=== PATIENT | female | born 1965 | race African-American/Black ===

== ENCOUNTER 2018-01-23 12:28 | Inpatient (IN) | payer OTHER ==
[~2018-01-23] VITALS: Ht 160 cm; Wt 98.0 kg
[~2018-01-23 12:28] MED LIST: ALBU2.5V14 NEB; CETI10TA22 PO; LEVO25TA55 PO; LISI-338 PO; MEDR2.5T PO; METF500T5 PO; MONT10TA9 PO; OMEP40CA5 PO; SIMV10TA PO
[2018-01-23] MEDS ORDERED: IPRATRPIUM/ALBUTEROL 0.5/2.5MG 3 ML NEBU. NEB ONE (14:00)
[2018-01-23] MEDS ORDERED: IV NORMAL SALINE 1,000ML 1,000 ML IV ONE ×2 (14:00→15:00)
--- NOTE | 2018-01-23 14:11 | RAD ---
Chest, 2 views, 01/23/2018: HISTORY: Shortness of breath, cough Comparison is made to a study from 03/07/2017. The heart size is normal. There are prominent pulmonary markings in a faintly reticulonodular pattern, similar to those seen on the previous study. No dense consolidation is seen. There is no evidence of pleural fluid. IMPRESSION: Prominent pulmonary markings are again noted suggesting chronic interstitial lung disease/fibrosis versus atypical pneumonia. Electronically signed by: Bala Haile MD (01/23/2018 2:08 PM) [facility]
--- NOTE | 2018-01-23 14:23 | PHYS DOC ---
Past History Past Medical History: Angina, Diabetes, Hypertension Past Surgical History: Cancer Surgery, Hysterectomy Alcohol Use: None Drug Use: None Adult General Chief Complaint Chief Complaint: FEVER HPI HPI Patient is a 52 YO Female with multiple medical problems to include hypertension as well as bladder cancer status post chemotherapy approximately last dose was she says 2 weeks ago. She did recently have a cystoscopy as well as January 15. She also has history of diabetes and hypertension she is coming in complaining of body aches feeling feverish she has a dry cough as well as some shortness of breath feels like wheezing in addition she's had a sore throat and some sinus congestion. Her sister has also checked into the emergency room with similar symptoms . Review of Systems Review of Systems Constitutional: FEVERISH Eyes: Denies change in visual acuity, redness, or eye pain [] HENT: HPI Respiratory: HPI Cardiovascular: No additional information not addressed in HPI [] GI: Denies abdominal pain, POS NAUSEA Musculoskeletal: Denies back pain or joint pain [] Integument: Denies rash or skin lesions [] Neurologic: Denies headache, focal weakness or sensory changes [] Endocrine: Denies polyuria or polydipsia [] All other systems were reviewed and found to be within normal limits, except as documented in this note. Current Medications Current Medications Current Medications Medications (Trade) Dose Ordered Sig/Cora Start Time Stop Time Status Last Admin Dose Admin Albuterol/ Ipratropium (Duoneb) 3 ml 1X ONCE 01/23/18 14:00 01/23/18 14:01 DC 01/23/18 14:00 3 ML Sodium Chloride 1,000 ml @ 1,000 mls/hr 1X ONCE 01/23/18 14:00 01/23/18 14:59 01/23/18 14:12 1,000 MLS/HR Allergies Allergies Allergies Coded Allergies Type Severity Reaction Last Updated Verified No Known Drug Allergies 04/30/15 No Physical Exam Physical Exam Constitutional: Well developed, well nourished, MILD DISTRESS HENT: Normocephalic, atraumatic, bilateral external ears normal, oropharynx DRY , no oral exudates, nose normal. [] Eyes: PERRLA, EOMI, conjunctiva normal, no discharge. [] Neck: Normal range of motion, no tenderness, supple, no stridor. [] Cardiovascular:TACHY NO DEFINITE MURMUR Lungs & Thorax: WHEEZING B/L WITH RHONCHI MID LEFT LUNG Abdomen: Bowel sounds normal, soft, no tenderness, no masses, no pulsatile masses. [] Skin: Warm, dry, no erythema, no rash. [] Extremities: No tenderness, no cyanosis, no clubbing, ROM intact, no edema. [] Neurologic: Alert and oriented X 3, normal motor function, normal sensory function, no focal deficits noted. [] Psychologic: Affect normal, judgement normal, mood normal. [] Current Patient Data Vital Signs Vital Signs Date Time Temp Pulse Resp B/P (MAP) Pulse Ox O2 Delivery O2 Flow Rate FiO2 01/23/18 14:00 98 Nasal Cannula 2.0 BP WAS IN 170S IN TRIAGE, TEMP 100.1 HR 118. SAT 93-95 RA RANGE PER RN EKG EKG [] Radiology/Procedures Radiology/Procedures [] Impressions: Comparison is made to a study from 03/07/2017. The heart size is normal. There are prominent pulmonary markings in a faintly reticulonodular pattern, similar to those seen on the previous study. No dense consolidation is seen. There is no evidence of pleural fluid. IMPRESSION: Prominent pulmonary markings are again noted suggesting chronic interstitial lung disease/fibrosis versus atypical pneumonia. Electronically signed by: Bala Haile MD (01/23/2018 2:08 PM) [facility] DICTATED AND SIGNED BY: BALA HAILE MD DATE: 01/23/18 1402 CC: KATELYNN ADAIR; TAWNYA ALDRIDGE MD ~ Course & Med Decision Making Course & Med Decision Making Pertinent Labs and Imaging studies reviewed. (See chart for details) This is a 52-year-old female with a history of bladder cancer status post chemotherapy last dose was she thinks January 07 recent cystoscopy on January 15 history of hypertension as well as diabetes who is presenting with symptoms of fever body aches cough and some sore throat and sinus congestion with a sick contact with similar symptoms. ER workup does reveal urinary tract infection possible atypical pneumonia on chest x-ray lactic acid was within normal limits Vitals were significant for tachycardia with a good blood pressure. Patient was given albuterol IV fluids as well as antibiotics in the emergency room to cover for atypical pneumonia and UTI. Due to her history risk factors have consulted with Dr. COLMENARES FOR INPATIENT ADMISSION. PT AGREABLE Tricia Disclaimer Tricia Disclaimer This electronic medical record was generated, in whole or in part, using a voice recognition dictation system. Departure Departure: Impression: Primary Impression: UTI (urinary tract infection) Additional Impression: Pneumonia Disposition: ADMITTED INPATIENT Condition: STABLE Referrals: KATELYNN ADAIR (PCP) Problem Qualifiers TAWNYA ALDRIDGE MD Jan 23, 2018 14:23
[2018-01-23] MEDS ORDERED: ACETAMINOPHEN 500 MG TABLET PO ONE (14:30)
[2018-01-23] MEDS ORDERED: DOXYCYCLINE HYCLATE 100 MG in IV DEXTROSE 5% 100 ML IV ONE (14:30)
[2018-01-23 14:31] LABS: BASO % 0 % (0-3); EOS # 0.1 x10^3/uL (0.0-0.7); EOS % 2 % (0-3); HEMATOCRIT 42.6 % (36.0-47.0); HEMOGLOBIN 14.4 g/dL (12.0-15.5); LYMPH # 0.7 x10^3/uL (1.0-4.8); LYMPH % 8 % (24-48); MEAN CORPUSCULAR HEMOGLOBIN 28 pg (25-35); MEAN CORPUSCULAR HGB CONC 34 g/dL (31-37); MEAN CORPUSCULAR VOLUME 84 fL (79-100); MONO # 0.7 x10^3/uL (0.0-1.1); MONO % 8 % (0-9); NEUT # 7.2 x10^3uL (1.8-7.7); NEUT % 82 % (31-73); PLATELET COUNT 374 x10^3/uL (140-400); RED BLOOD COUNT 5.06 x10^6/uL (3.50-5.40); WHITE BLOOD COUNT 8.7 x10^3/uL (4.0-11.0)
[2018-01-23 14:44] LABS: CLARITY,URINE TURBID; COLOR,URINE YELLOW
[2018-01-23 14:45] LABS: BACTERIA,URINE MANY /HPF (0-FEW); BILIRUBIN,URINE NEG (NEG); GLUCOSE,URINE NEG (NEG); NITRITE,URINE POS (NEG); SQUAMOUS EPITHELIAL CELL,UR OCC /LPF; UROBILINOGEN,URINE 1 mg/dL (0.2 mg/dL); WBC,URINE 20-40 /HPF (0-4)
[2018-01-23] MEDS ORDERED: IV DEXTROSE 5% 100 ML IV ONE (14:53)
[2018-01-23] MEDS ORDERED: IV NORMAL SALINE 50ML 50 ML ONE (14:53)
[2018-01-23] MEDS ORDERED: DOXYCYCLINE HYCLATE 100 MG VIAL IV ONE (14:53)
[2018-01-23] MEDS ORDERED: cefTRIAXone SODIUM 1 GM VIAL IV ONE (14:53)
[2018-01-23 15:19] LABS: ALBUMIN 3.3 g/dL (3.4-5.0); ALBUMIN/GLOBULIN RATIO 0.8 (1.0-1.7); CALCIUM 8.3 mg/dL (8.5-10.1); CREATININE 0.8 mg/dL (0.6-1.0); GFR 90.8; TOTAL BILIRUBIN 0.1 mg/dL (0.2-1.0); TOTAL PROTEIN 7.3 g/dL (6.4-8.2)
[2018-01-23] MEDS: IPRATRPIUM/ALBUTEROL 0.5/2.5MG 3 ML NEBU. NEB SCH ×2 (15:39→21:37)
[2018-01-23] MEDS ORDERED: NICOTINE 21MG PATCH. TD ONE (16:00)
[2018-01-23 16:30] VITALS: BP 138/90
[2018-01-23] MEDS ORDERED: CLON0.5T PO (17:28)
[2018-01-23] MEDS ORDERED: TRAZ50TA15 PO (17:28)
[2018-01-23] MEDS ORDERED: TRAM50TA PO (17:28)
[2018-01-23] MEDS ORDERED: BUPR150T9 PO (17:28)
[2018-01-23] MEDS ORDERED: FLUT9.9S NS (17:28)
[2018-01-23] MEDS: IV NORMAL SALINE 1,000ML 1,000 ML IV SCH ×2 (18:31→23:20)
[2018-01-23] MEDS: traMADol 50 MG TABLET PO PRN (18:45)
[2018-01-23] MEDS: metFORMIN 500 MG TABLET PO SCH (19:00)
[2018-01-23 19:35] VITALS: BP 139/89
[2018-01-23] MEDS: traZODone 50 MG TABLET. PO SCH (21:00)
[2018-01-23] MEDS ORDERED: clonazePAM 0.5 MG TABLET PO SCH (21:00)
[2018-01-23] MEDS: SIMVASTATIN 10 MG TABLET PO SCH (21:48)
[2018-01-23] MEDS: ACETAMINOPHEN 325 MG TABLET PO PRN (21:49)
[2018-01-23] MEDS: LISINOPRIL 20 MG TABLET PO SCH (21:49)
[2018-01-23] MEDS: ENOXAPARIN 40 MG/0.4 ML SYRINGE. SQ SCH (21:49)
[2018-01-23 23:30] VITALS: BP 137/88
[2018-01-24 05:35] VITALS: BP 105/68
[2018-01-24] MEDS: IV NORMAL SALINE 1,000ML 1,000 ML IV SCH (05:49)
[2018-01-24] MEDS: IPRATRPIUM/ALBUTEROL 0.5/2.5MG 3 ML NEBU. NEB SCH ×4 (06:41→22:09)
[2018-01-24] MEDS: metFORMIN 500 MG TABLET PO SCH ×3 (08:00→17:26)
[2018-01-24] MEDS ORDERED: cefTRIAXone IV Push 1 GM VIAL. IVP SCH (08:00)
[2018-01-24] MEDS ORDERED: clonazePAM 0.5 MG TABLET PO PRN (08:00)
[2018-01-24] MEDS: buPROPion XL 150 MG TAB.ER.24H PO SCH (08:55)
[2018-01-24] MEDS: PANTOPRAZOLE 40 MG TABLET. PO SCH (08:55)
[2018-01-24] MEDS: ACETAMINOPHEN 325 MG TABLET PO PRN (08:56)
[2018-01-24] MEDS: LISINOPRIL 20 MG TABLET PO SCH ×2 (08:56→20:13)
[2018-01-24] MEDS: LACTOBACILLUS RHAMNOSUS GG 1 CAPSULE. PO SCH ×2 (08:57→20:12)
[2018-01-24] MEDS: FLUTICASONE 50MCG/NASAL SPRAY 16GM BOTTLE. NS SCH (08:57)
[2018-01-24] MEDS: CETIRIZINE HCL 10 MG TABLET PO SCH (08:59)
[2018-01-24] MEDS: DOXYCYCLINE HYCLATE 100 MG in IV DEXTROSE 5% 100 ML IV SCH ×2 (10:01→20:12)
[2018-01-24 11:00] VITALS: BP 126/73
[2018-01-24] MEDS: traMADol 50 MG TABLET PO PRN ×3 (11:08→18:23)
[2018-01-24] MEDS: cefTRIAXone IV Push 1 GM VIAL. IVP SCH (15:00)
[2018-01-24 15:29] VITALS: BP 145/93
[2018-01-24] MEDS ORDERED: ACETAMINOPHEN 325 MG TABLET PO PRN (19:00)
[2018-01-24] MEDS: MONTELUKAST 10 MG TABLET. PO SCH (20:12)
[2018-01-24] MEDS: traZODone 50 MG TABLET. PO SCH (20:12)
[2018-01-24] MEDS: SIMVASTATIN 10 MG TABLET PO SCH (20:13)
[2018-01-24] MEDS: ENOXAPARIN 40 MG/0.4 ML SYRINGE. SQ SCH (20:13)
[2018-01-24] MEDS: methylPREDNISolone SOD SUCC PF 40 MG/ML VIAL. IV SCH (22:00)
[2018-01-24] MEDS: NICOTINE 21MG PATCH. TD PRN (22:00)
[2018-01-24 23:53] VITALS: BP 115/68
--- NOTE | 2018-01-25 00:09 | HP ---
ADMIT DATE: 01/23/2018 HISTORY OF PRESENT ILLNESS: The patient is a 52-year-old female patient who came to the Emergency Room with a complaint of cough that started about 4 days ago associated with the fever, aches and pains all over. She has nausea, but no vomiting. Did complain of left-sided chest pain, shortness of breath. Her fever was up to 102 obtained. She was evaluated in the Emergency Room, was found to have pneumonia on her chest x-ray as well as urinary tract infection, was admitted and was started on IV antibiotic in the form of Rocephin and doxycycline. Apparently, the patient was diagnosed with a bladder cancer and received the most recent chemotherapy on 01/08/2018, and she had had a cystoscopy done on 01/15/2018 at [facility]. PAST MEDICAL HISTORY: Significant for type 2 diabetes, diabetes mellitus, hypertension, coronary artery disease, status post myocardial infarction. She has what seems to be right middle cerebral artery territory infarct with left-sided hemiplegia with no residual neurological deficit. She has arthritis and what seems to be either idiopathic pulmonary fibrosis or some form of interstitial lung disease. PAST SURGICAL HISTORY: Significant for transurethral resection of the bladder cancer. She underwent breast biopsies and lung biopsies. She has a total abdominal hysterectomy and unilateral salpingo-oophorectomy. She also underwent esophagogastroduodenoscopy. ALLERGIES: She has no known drug allergies. MEDICATIONS: She is currently on following medications: She is on Zyrtec 10 mg once a day, albuterol sulfate by nebulizer every 6 hours, simvastatin 10 mg at bedtime, lisinopril 20 mg twice a day, tramadol 50 mg every 6 hours, clonazepam 0.5 mg 3 times a day, Zyban 150 mg p.o. daily, trazodone 50 mg at bedtime, Flonase 2 sprays to each nostril once a day, omeprazole 40 mg once a day, metformin 500 mg twice a day. FAMILY HISTORY: She has 3 sisters alive and 1 brother, and 2 sisters are diseased both of them were murdered, one was shot and the other was drugged to according to her. Her father at the age of 67 because of throat cancer. Mother at age of 57 because of myocardial infarction. SOCIAL HISTORY: She is , has 1 son and 2 daughters. She continued to smoke a pack a day, does not drink alcohol or recreational drugs. She used to work in food services industry. She used to smoke up to 3 packs a day, and now, she is cutting down. She attempted, but so far has failed to quit smoking. REVIEW OF SYSTEMS: The patient denied any blurring of vision, cataract, glaucoma or macular degeneration. Denied any earache, tinnitus or sensorineural deafness. Denied any nosebleeds, stuffy nose or postnasal drip. Denied any sore throat, sore tongue, toothache, hoarseness of voice or difficulty swallowing. Did complain of nausea, but no vomiting. Denied any diarrhea, but admitted to constipation. Denied any hematemesis, melena or hematochezia. Denied any dysuria, frequency or hematuria. Did have left-sided chest pain, but denied any orthopnea or paroxysmal nocturnal dyspnea. Denied any dizziness, lightheadedness, or vertigo. PHYSICAL EXAMINATION: GENERAL: On arrival to the Emergency Room, she was slightly pale, but no jaundice, cyanosis, or thyromegaly. No jugular venous distension. No limb edema. VITAL SIGNS: Her heart rate was 119, blood pressure 157/94, temperature was 100.1, respiratory rate was 20, and oxygen saturation was 95% on 2 liters of oxygen. HEAD, EYES, EARS, NOSE, AND THROAT: Shows normocephalic, atraumatic. NECK: Supple. HEART: Showed normal first and second heart sounds with no gallop, rub or murmur. CHEST: Shows central trachea, equal bilateral expansion, air entry, vesicular breath sounds with bilateral scattered rhonchi and crepitation worse posteriorly, left more than right. ABDOMEN: Slightly distended, soft, nontender. No guarding or rigidity. No organomegaly. All hernial orifices intact. Bowel sounds normal. NEUROLOGIC: She was awake, alert, responding appropriately. Cranial nerves are intact. She moves extremities without difficulty. She ambulates without assistance or assistive devices. DIAGNOSTIC STUDIES: Her lab work on admission showed a white cell count of 8700, hemoglobin 14.4, hematocrit 42.6, MCV 84 and platelet count 374,000. Her serum sodium was 139, potassium 4, chloride 105, bicarb 21, anion gap of 13, BUN 14, creatinine 0.8, estimated GFR was 91 mL per minute. Her glucose was 81, calcium was 8.3. Total bilirubin, AST, ALT, alkaline phosphatase were normal. Total protein was 7.3, albumin was 3.3. Urinalysis showed the urine was yellow, turbid with a pH of 7, specific gravity of 1.015. The urine was negative for protein, glucose, ketones, moderate amount of blood, positive for nitrites, small amount of leukocyte esterase. There were 6-10 rbc's, 20-40 wbc's, and too many bacteria. She does have a chest x-ray which showed, comparison was made to study from 2017, the heart size is normal. There are prominent pulmonary markings in a faintly reticular nodular pattern similar to those seen in the previous study. No dense consolidation is seen. There is no evidence of pleural fluid. The patient has prominent pulmonary markings are again noted suggesting chronic interstitial lung disease, fibrosis versus atypical pneumonia. ASSESSMENT AND PLAN: The patient was admitted with diagnosis of pneumonia as well as urinary tract infection. She obviously has bladder cancer that was treated with surgical resection and chemotherapy. The patient was started on ceftriaxone as well as doxycycline and was continued on all her other medications. JAZMIN COLMENARES MD DR: JACK/vitaliy JOB#: [id number] / [id number]
[2018-01-25 06:07] VITALS: BP 145/90
[2018-01-25] MEDS: methylPREDNISolone SOD SUCC PF 40 MG/ML VIAL. IV SCH ×3 (06:18→22:52)
[2018-01-25 06:33] LABS: HEMATOCRIT 38.9 % (36.0-47.0); HEMOGLOBIN 13.1 g/dL (12.0-15.5); RED BLOOD COUNT 4.58 x10^6/uL (3.50-5.40); RED CELL DISTRIBUTION WIDTH 15.4 % (11.5-14.5); WHITE BLOOD COUNT 8.2 x10^3/uL (4.0-11.0)
[2018-01-25 06:51] LABS: ALBUMIN 3.1 g/dL (3.4-5.0); ALBUMIN/GLOBULIN RATIO 0.7 (1.0-1.7); C REACTIVE PROTEIN 35.4 mg/L (0-3.3); CALCIUM 8.7 mg/dL (8.5-10.1); CREATININE 0.9 mg/dL (0.6-1.0); GFR 79.3; POTASSIUM 4.3 mmol/L (3.5-5.1); TOTAL BILIRUBIN 0.1 mg/dL (0.2-1.0); TOTAL PROTEIN 7.8 g/dL (6.4-8.2)
[2018-01-25] MEDS: IPRATRPIUM/ALBUTEROL 0.5/2.5MG 3 ML NEBU. NEB SCH ×4 (06:56→20:59)
[2018-01-25] MEDS: FLUTICASONE 50MCG/NASAL SPRAY 16GM BOTTLE. NS SCH (09:00)
[2018-01-25] MEDS: metFORMIN 500 MG TABLET PO SCH (09:44)
[2018-01-25] MEDS: CETIRIZINE HCL 10 MG TABLET PO SCH (09:44)
[2018-01-25] MEDS: buPROPion XL 150 MG TAB.ER.24H PO SCH (09:44)
[2018-01-25] MEDS: LACTOBACILLUS RHAMNOSUS GG 1 CAPSULE. PO SCH (09:44)
[2018-01-25] MEDS: LISINOPRIL 20 MG TABLET PO SCH ×2 (09:45→22:51)
[2018-01-25] MEDS: PANTOPRAZOLE 40 MG TABLET. PO SCH (09:46)
[2018-01-25 11:00] VITALS: BP 146/79
--- NOTE | 2018-01-25 11:33 | PN ---
DATE: 01/24/2018 SUBJECTIVE: The patient was admitted yesterday with recurrent bouts of cough, fever, generalized aches and pains, was diagnosed with a pneumonia as well as urinary tract infection. She was started on Rocephin and doxycycline. When I saw her today, she continued to complain of cough and left-sided chest pain. OBJECTIVE: GENERAL: On examining her, she looked well and was clearly in no apparent respiratory distress. VITAL SIGNS: Her heart rate was 101, blood pressure was 126/73, temperature was down to 98.1, respiratory rate 20, and oxygen saturation was 93% on 2 liters of oxygen by nasal cannula. HEAD, EYES, EARS, NOSE AND THROAT: Showed normocephalic, atraumatic. NECK: Supple. HEART: Showed normal first and second sounds. No gallop, rub or murmur. CHEST: Shows central trachea, equal bilateral expansion, air entry, vesicular sounds with crepitation in both sides posteriorly. She has diffuse wheezing involving all lung kurtz. ABDOMEN: Distended, soft, nontender. No guarding or rigidity. No organomegaly. Hernial orifice intact. Bowel sounds normal. NEUROLOGIC: She was awake, alert, responding appropriately. All cranial nerves intact. She moves extremities without difficulty. She ambulates without assistance or assistive devices. LABORATORY DATA: No lab work done this morning. ASSESSMENT: 1. Bladder cancer, status post 4 resections and chemotherapy, the last one was on 01/08/2018. She had also cystoscopy done on 01/15/2018. 2. Chronic obstructive pulmonary disease/idiopathic pulmonary fibrosis. 3. She has questionable pulmonary infiltrate. 4. Urinary tract infection. 5. Hypertension. 6. Hyperlipidemia. PLAN: My plan is to add DuoNeb and also Solu-Medrol, add also insulin sliding scale and continue with the IV antibiotic. Apparently, her urine has already grown more than 100,000 colony forming units per mL of gram-negative rods. JAZMIN COLMENARES MD DR: JACK/vitaliy JOB#: [id number] / [id number]
[2018-01-25 15:00] VITALS: BP 153/91
[2018-01-25] MEDS: cefTRIAXone IV Push 1 GM VIAL. IVP SCH (15:00)
[2018-01-25 20:13] VITALS: BP 130/84
[2018-01-25] MEDS: DOXYCYCLINE HYCLATE 100 MG TABLET PO SCH (22:51)
[2018-01-25] MEDS: MONTELUKAST 10 MG TABLET. PO SCH (22:51)
[2018-01-25] MEDS: traZODone 50 MG TABLET. PO SCH (22:51)
[2018-01-25] MEDS: SIMVASTATIN 10 MG TABLET PO SCH (22:51)
[2018-01-25] MEDS: ENOXAPARIN 40 MG/0.4 ML SYRINGE. SQ SCH (22:52)
[2018-01-25 23:51] VITALS: BP 116/74
--- NOTE | 2018-01-26 01:39 | PN ---
DATE: 01/25/2018 SUBJECTIVE: The patient is resting slightly propped up in bed, eating her lunch comfortably in no apparent distress. She continued to have cough and shortness of breath and does not feel that she is ready to go home, although she is generally feeling much better compared to when she came PHYSICAL EXAMINATION: GENERAL: When I examined her, she looked well and was clearly in no apparent respiratory distress. No pallor, jaundice, cyanosis, or thyromegaly. No jugular venous distension. No lower limb edema. VITAL SIGNS: Her heart rate was 83, blood pressure 105/68, temperature was 97.8, respiratory rate 20, and oxygen saturation was 93% on 2 liters of oxygen. HEAD, EYES, EARS, NOSE AND THROAT: Showed normocephalic, atraumatic. NECK: Supple. HEART: Showed normal first and second sounds. No gallop, rub or murmur. CHEST: Clear to auscultation. No crepitation or rhonchi. She has diffuse wheezing. This is much less than yesterday. ABDOMEN: Distended, soft, nontender. No guarding or rigidity. No organomegaly. Hernial orifices intact. Bowel sounds normal. NEUROLOGIC: She is awake, alert, responding appropriately. All cranial nerves intact. She moves extremities without difficulty. She ambulates without assistance or assistive devices. LABORATORY DATA: Her lab work this morning showed a white cell count of 8200, hemoglobin 13, hematocrit 39, MCV 85 and platelet count 275,000. Her sed rate was high at 71. Her serum sodium was 137, potassium 4.3, chloride 104, bicarbonate 24, anion gap of 9, BUN 6, creatinine 0.9, estimated GFR was 79 mL per minute. Her glucose was 82, calcium was 8.7. Total bilirubin, AST, ALT, alkaline phosphatase were normal. Total protein was 7.8, albumin was 3.1. C-reactive protein was 35.4 mg/dL. So far, her blood cultures are still negative; however, her urine culture has grown more than 100,000 colony-forming units per milliliter of Klebsiella pneumoniae, sensitive to all antibiotics including ceftriaxone and tetracycline. My plan is to continue with the current management for today. FINAL IMPRESSION: 1. Bladder cancer status post resection and chemotherapy, the last one was on 01/08/2018. She also had cystoscopy done on 01/15/2018. 2. Urinary tract infection with growth of more than 100,000 colony-forming units per milliliter of Klebsiella pneumoniae, sensitive to all antibiotics. 3. Chronic obstructive pulmonary disease/idiopathic pulmonary fibrosis. 4. Questionable pulmonary infiltrate. 5. Hypertension. 6. Hyperlipidemia. PLAN: Continue with the steroids and bronchodilator as well as IV antibiotics and will evaluate her tomorrow and discharge her if she is feeling any better. JAZMIN COLMENARES MD DR: JACK/vitaliy JOB#: [id number] / [id number]
[2018-01-26] MEDS: IPRATRPIUM/ALBUTEROL 0.5/2.5MG 3 ML NEBU. NEB SCH ×2 (04:32→10:53)
[2018-01-26 05:57] VITALS: BP 115/66
[2018-01-26] MEDS: methylPREDNISolone SOD SUCC PF 40 MG/ML VIAL. IV SCH ×2 (06:00→06:31)
[2018-01-26] MEDS: FLUTICASONE 50MCG/NASAL SPRAY 16GM BOTTLE. NS SCH (10:06)
[2018-01-26] MEDS: PANTOPRAZOLE 40 MG TABLET. PO SCH (10:07)
[2018-01-26] MEDS: buPROPion XL 150 MG TAB.ER.24H PO SCH (10:07)
[2018-01-26] MEDS: NICOTINE 21MG PATCH. TD PRN (10:07)
[2018-01-26] MEDS: CETIRIZINE HCL 10 MG TABLET PO SCH (10:07)
[2018-01-26] MEDS: DOXYCYCLINE HYCLATE 100 MG TABLET PO SCH (10:07)
[2018-01-26] MEDS: LISINOPRIL 20 MG TABLET PO SCH (10:07)
[2018-01-26 10:40] VITALS: BP 143/78
[2018-01-26] MEDS ORDERED: predniSONE 20 MG TABLET PO SCH (11:30)
[2018-01-26] MEDS ORDERED: CEFP200T PO (12:36)
[2018-01-26] MEDS ORDERED: PRED20TA PO (12:36)
[2018-01-26] MEDS ORDERED: DOXY100C2 PO (12:36)
--- NOTE | 2018-01-26 13:13 | DS ---
DATE OF DISCHARGE: 01/26/2018 HOSPITAL COURSE: The patient is a 52-year-old -[place] female patient, who was admitted on 01/23/2018 with cough that started about 4 days prior to arrival to the Emergency Room with fever, aches and pains all over, but no vomiting. Did complain of left-sided chest pain, shortness of breath, fever was up to 102 Fahrenheit. She was evaluated in the Emergency Room, was admitted with community-acquired pneumonia as well as urinary tract infection. She was started on IV antibiotic in the form of Rocephin and doxycycline. She did actually very well. She remained afebrile, hemodynamically stable with normal white cell count throughout her stay. When I saw her this morning, she was sitting at the edge of the bed comfortably, in no apparent distress. On questioning her, denied any further episode of cough, chest tightness or shortness of breath. She had 6-minute walk, which showed that she is maintaining her oxygen saturation at 95% on room air on exertion and a decision was made to discharge her home to continue with oral antibiotic as well as tapering course of steroids. PHYSICAL EXAMINATION: GENERAL: When I saw her this morning, she looked well and was clearly in no apparent respiratory distress. No pallor, jaundice, cyanosis, or thyromegaly. No jugular venous distension. No limb edema. VITAL SIGNS: Her heart rate was 63, blood pressure 143/78, temperature was 97.8, respiratory rate 20, and oxygen saturation was 98% on room air. HEAD, EYES, EARS, NOSE AND THROAT: Showed normocephalic, atraumatic. NECK: Supple. HEART: Showed normal first and second sounds. No gallop, rub or murmur. CHEST: Clear to auscultation. No crepitation or rhonchi. ABDOMEN: Distended, soft, nontender. No guarding or rigidity. No organomegaly. All hernial orifice intact. Bowel sounds normal. NEUROLOGIC: She was awake, alert, responding appropriately. All cranial nerves intact. She moves extremities without difficulty. She ambulates without assistance or assistive devices. LABORATORY DATA: As of yesterday showed a white cell count of 8200, hemoglobin 13, hematocrit 39, MCV 85 and platelet count 275,000. Her chemistry showed a serum sodium 137, potassium 4.3, chloride 104, bicarbonate 24, anion gap of 9, BUN 6, creatinine 0.9, estimated GFR was 79 mL per minute. Her glucose was 182, calcium was 8.7. Total bilirubin, AST, ALT, alkaline phosphatase were normal. C-reactive protein was 35 mg/dL NC and sed rate was 70 mm per hour. Total protein was 7.8, albumin 3.1. DISCHARGE MEDICATIONS: She was discharged on following medications: Albuterol sulfate by nebulizer every 6 hours, Zyban 150 mg once a day, cetirizine for Zyrtec 10 mg once a day, clonazepam 0.5 mg 3 times a day, Flonase 2 sprays to each nostril daily, lisinopril 20 mg twice a day, metformin 500 mg twice a day, omeprazole 40 mg once a day, simvastatin 10 mg at bedtime, tramadol 50 mg every 6 hours, trazodone 50 mg once a day. She was also discharged on doxycycline 100 mg twice a day for 5 days as well as cefpodoxime 200 mg twice a day, prednisone in tapering fashion at 40 mg once a day for 2 days, 30 mg once a day for 3 days, 20 mg once a day for 3 days, and 10 mg once a day for 3 days. She was also discharged, given a prescription for Flonase. FINAL DISCHARGE DIAGNOSES: 1. Community-acquired pneumonia. 2. Chronic obstructive pulmonary disease exacerbation/idiopathic pulmonary fibrosis. 3. Urinary tract infection with growth of more than 100,000 colony-forming units per mL of Klebsiella pneumoniae, sensitive to all antibiotics. She is known to have hypertension, hyperlipidemia, bladder cancer, status post for resection and chemotherapy. JAZMIN COLMENARES MD DR: JACK/vitaliy JOB#: [id number] / [id number]
[2018-01-27] MEDS ORDERED: predniSONE 20 MG TABLET PO SCH (09:00)
== END 2018-01-26 13:29 | disposition home or self-care (01) | DRG 871 ==
LOC: ER 12:28 → 1 SOUTH 16:16
PROVIDERS: ADMIT Internal Medicine; ATTEND Internal Medicine
DX: A41.9 Sepsis, unspecified organism (principal); J18.9 Pneumonia, unspecified organism; J44.1 Chronic obstructive pulmonary disease with (acute) exacerbation; N39.0 Urinary tract infection, site not specified; G81.94 Hemiplegia, unspecified affecting left nondominant side; J44.0 Chronic obstructive pulmonary disease with (acute) lower respiratory infection; J84.112 Idiopathic pulmonary fibrosis; C67.9 Malignant neoplasm of bladder, unspecified; E11.9 Type 2 diabetes mellitus without complications; E78.5 Hyperlipidemia, unspecified; F17.210 Nicotine dependence, cigarettes, uncomplicated; I10 Essential (primary) hypertension; M19.90 Unspecified osteoarthritis, unspecified site; I25.10 Atherosclerotic heart disease of native coronary artery without angina pectoris; B96.1 Klebsiella pneumoniae [K. pneumoniae] as the cause of diseases classified elsewhere; I25.2 Old myocardial infarction; Z80.8 Family history of malignant neoplasm of other organs or systems; Z82.49 Family history of ischemic heart disease and other diseases of the circulatory system; Z85.51 Personal history of malignant neoplasm of bladder; Z86.73 Personal history of transient ischemic attack (TIA), and cerebral infarction without residual deficits; Z92.21 Personal history of antineoplastic chemotherapy; Z90.710 Acquired absence of both cervix and uterus
CPT/HCPCS: 36415; 71046; 80053; 81001; 82947; 83605; 85025; 85027; 85651; 86140; 87040; 87086; 87186; 94640; 96361; 96365; 96368; J0696; J1650; J2920; J3490; J7512; J7620; 99285-25; J7030

== ENCOUNTER 2018-05-23 01:02 | Emergency (ER) | payer OTHER ==
[~2018-05-23] VITALS: Ht 160 cm; Wt 95.3 kg
[~2018-05-23 01:02] MED LIST changes: +BUPR150T9 PO; +CEFP200T PO; +CLON0.5T PO; +DOXY100C2 PO; +FLUT9.9S NS; +METF500T16 PO; -METF500T5 PO; +PRED20TA PO; +TRAM50TA PO; +TRAZ-85 PO
[2018-05-23] MEDS ORDERED: ONDANSETRON PF 4 MG/2 ML VIAL. IV ONE (01:30)
[2018-05-23] MEDS ORDERED: MORPHINE SULFATE 4 MG/ML DISP.SYRIN. IV ONE (01:30)
--- NOTE | 2018-05-23 01:31 | PHYS DOC ---
Past History Past Medical History: Angina, Cancer, Diabetes, Hypertension, ME Past Surgical History: Cancer Surgery, Hysterectomy Alcohol Use: None Drug Use: None Adult General Chief Complaint Chief Complaint: LOWER EXT PAIN HPI HPI 52-year-old female presents via EMS with bilateral lower extremity pain. Patient states that she had surgery 2 days ago on her bladder. She was doing fine until about 4 hours ago when she began to feel pain in her right knee and her entire left leg up to the hip. The patient became concerned when this pain did not quickly resolved. It is now painful to walk. She has a history of DVT, but no PE. She had this DVT after previous surgery. Her surgery 2 days ago was for bladder cancer. She denies fever or chills. She denies trauma or falls. Review of Systems Review of Systems Constitutional: Denies fever or chills [] Eyes: Denies change in visual acuity, redness, or eye pain [] HENT: Denies nasal congestion or sore throat [] Respiratory: Denies cough or shortness of breath [] Cardiovascular: No additional information not addressed in HPI [] GI: Denies abdominal pain, nausea, vomiting, bloody stools or diarrhea [] : Denies dysuria or hematuria [] Musculoskeletal: Bilateral lower extremity pain[] Integument: Denies rash or skin lesions [] Neurologic: Denies headache, focal weakness or sensory changes [] Endocrine: Denies polyuria or polydipsia [] All other systems were reviewed and found to be within normal limits, except as documented in this note. Current Medications Current Medications Current Medications Medications (Trade) Dose Ordered Sig/Coar Start Time Stop Time Status Last Admin Dose Admin Morphine Sulfate (Morphine 4mg Syringe) 4 mg 1X ONCE 05/23/18 01:30 05/23/18 01:31 UNV Ondansetron HCl (Zofran) 4 mg 1X ONCE 05/23/18 01:30 05/23/18 01:31 UNV Allergies Allergies Allergies Coded Allergies Type Severity Reaction Last Updated Verified No Known Drug Allergies 04/30/15 No Physical Exam Physical Exam Constitutional: Well developed, well nourished, no acute distress, non-toxic appearance. [] HENT: Normocephalic, atraumatic, bilateral external ears normal, oropharynx moist, no oral exudates, nose normal. [] Eyes: PERRLA, EOMI, conjunctiva normal, no discharge. [] Neck: Normal range of motion, no tenderness, supple, no stridor. [] Cardiovascular:Heart rate regular rhythm, no murmur [] Lungs & Thorax: Bilateral breath sounds clear to auscultation [] Abdomen: Bowel sounds normal, soft, no tenderness, no masses, no pulsatile masses. [] Skin: Warm, dry, no erythema, no rash. [] Back: No tenderness, no CVA tenderness. [] Extremities: Mild tenderness with calf compression bilaterally. No cyanosis, no clubbing, ROM intact, no edema. [] Neurologic: Alert and oriented X 3, normal motor function, normal sensory function, no focal deficits noted. [] Psychologic: Affect normal, judgement normal, mood normal. [] EKG EKG [] Radiology/Procedures Radiology/Procedures [] Impressions: Bilateral lower extremity venous Doppler: Reason for examination: Bilateral leg pain. History of cancer. Evaluate for deep venous thrombosis. The right and left lower extremity venous systems were evaluated from the common femoral and greater saphenous veins distally to the calf veins with grayscale imaging, color-flow imaging and spectral analysis. There is normal blood flow present in the venous systems bilaterally. There is normal response of the venous systems to compression and augmentation. No deep venous thrombosis is identified. IMPRESSION: No deep venous thrombosis in the right or left lower extremity venous systems. Electronically signed by: Merari Duran MD (05/23/2018 2:19 AM) [facility] DICTATED AND SIGNED BY: MERARI DURAN MD DATE: 05/23/18216 CC: JOCELYNN HAYWOOD DO; KATELYNN ADAIR Course & Med Decision Making Course & Med Decision Making Pertinent Labs and Imaging studies reviewed. (See chart for details) The patient's lower extremity ultrasound is negative for DVT. Her labs are unremarkable except for slightly elevated white count of 13 3. I'm unsure why she is having leg pain. I gave her 4 mg of morphine and 4 mg of Zofran IV. This helped control pain. The patient was reassured by her negative workup. I will discharge her with a short course of [place] 5/325 for pain. She is stable for discharge at this time. Dragon Disclaimer Dragon Disclaimer This electronic medical record was generated, in whole or in part, using a voice recognition dictation system. Departure Departure: Referrals: KATELYNN ADAIR (PCP) Scripts Hydrocodone Bit/Acetaminophen (NORCO 5-325 TABLET) 1 Each Tablet 1 TAB PO PRN Q6HRS PRN for PAIN, #10 TAB 0 Refills Prov: JOCELYNN HAYWOOD DO 05/23/18 JOCELYNN HAYWOOD DO May 23, 2018 01:31
[2018-05-23 01:41] LABS: ALBUMIN 3.4 g/dL (3.4-5.0); ALBUMIN/GLOBULIN RATIO 0.8 (1.0-1.7); CALCIUM 9.2 mg/dL (8.5-10.1); CREATININE 0.9 mg/dL (0.6-1.0); GFR 79.3; POTASSIUM 3.6 mmol/L (3.5-5.1); TOTAL BILIRUBIN 0.1 mg/dL (0.2-1.0); TOTAL PROTEIN 7.7 g/dL (6.4-8.2)
[2018-05-23 02:01] LABS: BASO % 0 % (0-3); EOS # 0.3 x10^3/uL (0.0-0.7); EOS % 2 % (0-3); HEMATOCRIT 42.2 % (36.0-47.0); HEMOGLOBIN 14.2 g/dL (12.0-15.5); LYMPH # 4.3 x10^3/uL (1.0-4.8); LYMPH % 32 % (24-48); MEAN CORPUSCULAR HEMOGLOBIN 29 pg (25-35); MEAN CORPUSCULAR HGB CONC 34 g/dL (31-37); MEAN CORPUSCULAR VOLUME 85 fL (79-100); MONO # 0.7 x10^3/uL (0.0-1.1); MONO % 5 % (0-9); NEUT % 60 % (31-73); PLATELET COUNT 325 x10^3/uL (140-400); RED BLOOD COUNT 4.96 x10^6/uL (3.50-5.40); RED CELL DISTRIBUTION WIDTH 15.5 % (11.5-14.5); WHITE BLOOD COUNT 13.3 x10^3/uL (4.0-11.0)
--- NOTE | 2018-05-23 02:22 | RAD ---
Bilateral lower extremity venous Doppler: Reason for examination: Bilateral leg pain. History of cancer. Evaluate for deep venous thrombosis. The right and left lower extremity venous systems were evaluated from the common femoral and greater saphenous veins distally to the calf veins with grayscale imaging, color-flow imaging and spectral analysis. There is normal blood flow present in the venous systems bilaterally. There is normal response of the venous systems to compression and augmentation. No deep venous thrombosis is identified. IMPRESSION: No deep venous thrombosis in the right or left lower extremity venous systems. Electronically signed by: Merari Fox MD (05/23/2018 2:19 AM) [facility]
[2018-05-23] MEDS ORDERED: HYDROcodone/APAP 5/325MG 1 TAB TABLET PO ONE (02:45)
[2018-05-23] MEDS ORDERED: HYDR-971 PO (02:45)
[2018-05-23 02:50] VITALS: BP 184/115
== END 2018-05-23 02:54 | disposition home or self-care (01) ==
LOC: ER 01:02
DX: M79.605 Pain in left leg (principal); M79.604 Pain in right leg; D72.829 Elevated white blood cell count, unspecified; E11.9 Type 2 diabetes mellitus without complications; I10 Essential (primary) hypertension; I25.2 Old myocardial infarction; Z86.718 Personal history of other venous thrombosis and embolism
CPT/HCPCS: 36415; 80053; 85025; 93970; 96374; 96375; 99285; J2270; J2405

== ENCOUNTER 2019-04-24 19:57 | Emergency (ER) | payer OTHER ==
[~2019-04-24] VITALS: Ht 160 cm; Wt 95.3 kg
[~2019-04-24 19:57] MED LIST changes: +HYDR-3165 PO; +MONT10TA80 PO; -MONT10TA9 PO; +TRAZ-120 PO; -TRAZ-85 PO
--- NOTE | 2019-04-24 20:18 | PHYS DOC ---
Past History Past Medical History: Angina, Cancer, Diabetes, DVT, High Cholesterol, Hypertension, CT, Stroke, Other Past Surgical History: Cancer Surgery, Hysterectomy Alcohol Use: None Drug Use: None Adult General Chief Complaint Chief Complaint: CHEST PAIN HPI HPI 53-year-old female presents with chest pain. Chest. It is a squeezing sensation that feels deep. It comes and goes in waves. When it comes, it lasts only a few seconds. She's been having these feelings intermittently for about a month. Patient decided to come to the ED today because she was recently told she has an enlarged aorta. She wanted to make sure that this pain she was having was not related to that. The pain has been worse today than previous days. It does not seem to be a pattern to when the pain happens. It is random. The patient has been trying Prilosec for a few weeks and that has not changed her pain. She denies fever or chills. Review of Systems Review of Systems Constitutional: Denies fever or chills [] Eyes: Erythematous right eye with periorbital swelling[] HENT: Denies nasal congestion or sore throat [] Respiratory: Denies cough or shortness of breath [] Cardiovascular: No additional information not addressed in HPI [] GI: Denies abdominal pain, nausea, vomiting, bloody stools or diarrhea [] : Denies dysuria or hematuria [] Musculoskeletal: Denies back pain or joint pain [] Integument: Denies rash or skin lesions [] Neurologic: Denies headache, focal weakness or sensory changes [] Endocrine: Denies polyuria or polydipsia [] All other systems were reviewed and found to be within normal limits, except as documented in this note. Current Medications Current Medications Current Medications Medications (Trade) Dose Ordered Sig/[facility] Start Time Stop Time Status Last Admin Dose Admin Aspirin (Children'S Aspirin) 324 mg 1X ONCE 04/24/19 20:30 04/24/19 20:31 Allergies Allergies Allergies Coded Allergies Type Severity Reaction Last Updated Verified No Known Drug Allergies 04/30/15 No Physical Exam Physical Exam Constitutional: Well developed, well nourished, no acute distress, non-toxic appearance. [] HENT: Normocephalic, atraumatic, bilateral external ears normal, oropharynx moist, no oral exudates, nose normal. [] Eyes: PERRLA, EOMI, conjunctiva are erythematous on the right, periorbital swelling on the right greatest in the upper eyelid[] Neck: Normal range of motion, no tenderness, supple, no stridor. [] Cardiovascular:Heart rate regular rhythm, no murmur [] Lungs & Thorax: Bilateral breath sounds clear to auscultation [] Abdomen: Bowel sounds normal, soft, no tenderness, no masses, no pulsatile masses. [] Skin: Warm, dry, no erythema, no rash. [] Back: No tenderness, no CVA tenderness. [] Extremities: No tenderness, no cyanosis, no clubbing, ROM intact, no edema. [] Neurologic: Alert and oriented X 3, normal motor function, normal sensory function, no focal deficits noted. [] Psychologic: Affect normal, judgement normal, mood normal. [] Current Patient Data Vital Signs Vital Signs Date Time Temp Pulse Resp B/P (MAP) Pulse Ox O2 Delivery O2 Flow Rate FiO2 04/24/19 20:03 98.2 98 18 96 Room Air EKG EKG Sinus rhythm, rate 97, normal axis, no ST elevations or depressions.[] Radiology/Procedures Radiology/Procedures [] Impressions: Exam: CTA chest INDICATION: Chest pain TECHNIQUE: Sequential axial images through the chest obtained following the administration of 100 mL of Omni 350 IV contrast. Sagittal and coronal reformatted images were reconstructed from the axial data and reviewed. 3-D reformatted images were reconstructed from the axial data and reviewed. Comparisons: Chest x-ray same day FINDINGS: Visualized portions of the thyroid are unremarkable. Several scattered prevascular and pretracheal lymph nodes are noted. Bilateral hilar lymphadenopathy is also noted. Heart size is normal. No pericardial effusion. The thoracic aorta has normal course and caliber. Pulmonary artery is not enlarged. No pulmonary embolus identified within the main, lobar or segmental pulmonary arteries. Airways are patent. No consolidation or pneumothorax. In the left lower lobe there is a 2.4 cm lobulated pulmonary nodule series 8 image 116. Additionally, numerous random nodules are noted at the upper lungs bilaterally. Centrilobular emphysematous change noted in the lungs. No pleural effusion or thickening. Visualized upper abdomen is unremarkable. No suspicious osseous lesions or acute fractures. IMPRESSION: 1. No pulmonary embolus identified within the main, lobar or segmental pulmonary arteries. 2. Thoracic aorta has a normal course and caliber without evidence of dissection or aneurysm. 3. A 2.4 cm nodule in the left lower lobe which is concerning for primary lung malignancy. Correlation with tissue tissue sampling and/or PET/CT is recommended. 4. Numerous other tiny pulmonary nodules throughout the lungs. Continued attention on follow-up imaging. Exposure: One or more of the following in the visualized dose reduction techniques were utilized for this examination: 1. Automated exposure control 2. Adjustment of the MA and/or KV according to patient size 3. Use of iterative of reconstructive technique Electronically signed by: Evy Pat MD (04/24/2019 10:25 PM) [facility] DICTATED AND SIGNED BY: EVY PAT MD DATE: 04/24/192224 CC: JOCELYNN HAYWOOD DO; KATELYNN ADAIR ~ Course & Med Decision Making Course & Med Decision Making Pertinent Labs and Imaging studies reviewed. (See chart for details) The patient's labs are unremarkable. Her chest x-ray is unremarkable. Her CT angiogram is negative for pulmonary embolus or aortic dissection. There is an incidental finding of a 2.47 L nodule in the left lower lobe. This should be followed soon. Her EKG is unremarkable. Her troponin is negative. She is stable for discharge at this time. [] Dragon Disclaimer Dragon Disclaimer This electronic medical record was generated, in whole or in part, using a voice recognition dictation system. Departure Departure: Impression: Primary Impression: Lung nodule Additional Impression: Chest pain Disposition: 01 HOME, SELF-CARE Condition: STABLE Referrals: KATELYNN ADAIR (PCP) Patient Instructions: Chest Pain (Nonspecific), [id number], Pulmonary Nodule, [id number] Problem Qualifiers Additional Impression: Chest pain Chest pain type: unspecified Qualified Codes: R07.9 - Chest pain, unspecified JOCELYNN HAYWOOD DO Apr 24, 2019 20:18
[2019-04-24] MEDS ORDERED: ASPIRIN 81 MG TAB.CHEW PO ONE (20:30)
--- NOTE | 2019-04-24 20:35 | RAD ---
Exam: Chest one view INDICATION: Chest pain TECHNIQUE: Frontal view of the chest Comparisons: 01/23/2018 FINDINGS: The cardiomediastinal silhouette and pulmonary vessels are within normal limits. The lung and pleural spaces are clear. IMPRESSION: No acute cardiopulmonary process. Electronically signed by: Lefty Alcantar MD (04/24/2019 8:32 PM) [facility]
[2019-04-24 20:41] LABS: BASO # 0.1 x10^3/uL (0.0-0.2); BASO % 1 % (0-3); EOS # 0.3 x10^3/uL (0.0-0.7); EOS % 2 % (0-3); HEMATOCRIT 42.2 % (36.0-47.0); LYMPH # 4.1 x10^3/uL (1.0-4.8); LYMPH % 36 % (24-48); MEAN CORPUSCULAR HEMOGLOBIN 28 pg (25-35); MEAN CORPUSCULAR HGB CONC 33 g/dL (31-37); MEAN CORPUSCULAR VOLUME 86 fL (79-100); MONO # 0.7 x10^3/uL (0.0-1.1); MONO % 6 % (0-9); NEUT # 6.1 x10^3uL (1.8-7.7); NEUT % 54 % (31-73); PLATELET COUNT 295 x10^3/uL (140-400); RED BLOOD COUNT 4.93 x10^6/uL (3.50-5.40); RED CELL DISTRIBUTION WIDTH 14.9 % (11.5-14.5); WHITE BLOOD COUNT 11.3 x10^3/uL (4.0-11.0)
[2019-04-24 21:02] LABS: ALBUMIN 3.6 g/dL (3.4-5.0); ALBUMIN/GLOBULIN RATIO 0.9 (1.0-1.7); CALCIUM 9.4 mg/dL (8.5-10.1); CREATININE 0.9 mg/dL (0.6-1.0); POTASSIUM 3.9 mmol/L (3.5-5.1); TOTAL BILIRUBIN 0.2 mg/dL (0.2-1.0); TOTAL PROTEIN 7.5 g/dL (6.4-8.2)
[2019-04-24] MEDS ORDERED: IOHEXOL 350 MG/ML 100 ML VIAL. IV ONE (21:45)
[2019-04-24] MEDS ORDERED: CONTRAST GIVEN MC PRN (21:45)
--- NOTE | 2019-04-24 22:29 | RAD ---
Exam: CTA chest INDICATION: Chest pain TECHNIQUE: Sequential axial images through the chest obtained following the administration of 100 mL of Omni 350 IV contrast. Sagittal and coronal reformatted images were reconstructed from the axial data and reviewed. 3-D reformatted images were reconstructed from the axial data and reviewed. Comparisons: Chest x-ray same day FINDINGS: Visualized portions of the thyroid are unremarkable. Several scattered prevascular and pretracheal lymph nodes are noted. Bilateral hilar lymphadenopathy is also noted. Heart size is normal. No pericardial effusion. The thoracic aorta has normal course and caliber. Pulmonary artery is not enlarged. No pulmonary embolus identified within the main, lobar or segmental pulmonary arteries. Airways are patent. No consolidation or pneumothorax. In the left lower lobe there is a 2.4 cm lobulated pulmonary nodule series 8 image 116. Additionally, numerous random nodules are noted at the upper lungs bilaterally. Centrilobular emphysematous change noted in the lungs. No pleural effusion or thickening. Visualized upper abdomen is unremarkable. No suspicious osseous lesions or acute fractures. IMPRESSION: 1. No pulmonary embolus identified within the main, lobar or segmental pulmonary arteries. 2. Thoracic aorta has a normal course and caliber without evidence of dissection or aneurysm. 3. A 2.4 cm nodule in the left lower lobe which is concerning for primary lung malignancy. Correlation with tissue tissue sampling and/or PET/CT is recommended. 4. Numerous other tiny pulmonary nodules throughout the lungs. Continued attention on follow-up imaging. Exposure: One or more of the following in the visualized dose reduction techniques were utilized for this examination: 1. Automated exposure control 2. Adjustment of the MA and/or KV according to patient size 3. Use of iterative of reconstructive technique Electronically signed by: Lefty Alcantar MD (04/24/2019 10:25 PM) [facility]
[2019-04-24 23:10] VITALS: BP 153/100
[2019-04-24] MEDS ORDERED: ERYT1OIN6 OP (23:11)
--- NOTE | 2019-04-25 03:29 | EKG ---
[address] [address] Test Date: 2019-04-24 Test Time: 20:06:50 Pat Name: TC HERNANDEZ Department: Room: Gender: F Porter Head: : 1965 Requested By: JOCELYNN HAYWOOD Order Number: [id number] Reading MD: Measurements Intervals [place] Rate: 97 P: 58 SC: 178 QRS: 39 QRSD: 80 T: 46 QT: 348 QTc: 446 Interpretive Statements SINUS RHYTHM QRS(T) CONTOUR ABNORMALITY CONSIDER ANTEROSEPTAL MYOCARDIAL DAMAGE POSSIBLY ABNORMAL ECG RI6.01 No previous ECG available for comparison
== END 2019-04-24 23:16 | disposition home or self-care (01) ==
LOC: ER 19:57
DX: R91.1 Solitary pulmonary nodule (principal); R07.89 Other chest pain; H02.841 Edema of right upper eyelid; E11.9 Type 2 diabetes mellitus without complications; E78.00 Pure hypercholesterolemia, unspecified; I10 Essential (primary) hypertension; I25.2 Old myocardial infarction; Z86.718 Personal history of other venous thrombosis and embolism; Z86.73 Personal history of transient ischemic attack (TIA), and cerebral infarction without residual deficits
CPT/HCPCS: 36415; 71045; 71275; 80053; 83880; 84484; 85025; 93005; 99285; Q9967

== ENCOUNTER 2020-12-07 12:31 | Emergency (ER) | payer OTHER ==
[~2020-12-07] VITALS: Ht 160 cm; Wt 100.0 kg
[~2020-12-07 12:31] MED LIST changes: -CETI10TA22 PO; +CETI10TA74 PO; +ERYT1OIN6 OP; -LISI-338 PO; +LISI-517 PO; +OMEP40CA45 PO; -OMEP40CA5 PO
[2020-12-07] MEDS ORDERED: hydrALAZINE 20 MG/ML VIAL. IV ONE (13:15)
[2020-12-07 13:23] LABS: BASO # 0.1 x10^3/uL (0.0-0.2); BASO % 1 % (0-3); EOS # 0.3 x10^3/uL (0.0-0.7); EOS % 3 % (0-3); HEMATOCRIT 44.4 % (36.0-47.0); HEMOGLOBIN 14.9 g/dL (12.0-15.5); LYMPH % 30 % (24-48); MEAN CORPUSCULAR HEMOGLOBIN 29 pg (25-35); MEAN CORPUSCULAR HGB CONC 34 g/dL (31-37); MEAN CORPUSCULAR VOLUME 85 fL (79-100); MONO # 0.5 x10^3/uL (0.0-1.1); MONO % 5 % (0-9); NEUT # 6.1 x10^3uL (1.8-7.7); NEUT % 62 % (31-73); PLATELET COUNT 328 x10^3/uL (140-400); WHITE BLOOD COUNT 9.9 x10^3/uL (4.0-11.0)
[2020-12-07 13:25] LABS: CALCIUM 9.5 mg/dL (8.5-10.1); CREATININE 0.9 mg/dL (0.6-1.0); GFR 78.4; POTASSIUM 3.7 mmol/L (3.5-5.1)
[2020-12-07 13:31] LABS: ALBUMIN 3.8 g/dL (3.4-5.0); ALBUMIN/GLOBULIN RATIO 0.8 (1.0-1.7); MAGNESIUM 1.9 mg/dL (1.8-2.4); TOTAL BILIRUBIN 0.3 mg/dL (0.2-1.0); TOTAL PROTEIN 8.7 g/dL (6.4-8.2)
[2020-12-07] MEDS ORDERED: CONTRAST GIVEN. MC PRN (13:45)
[2020-12-07] MEDS ORDERED: IOHEXOL 350 MG/ML 100 ML VIAL. IV ONE (13:45)
--- NOTE | 2020-12-07 13:51 | PHYS DOC ---
Past History Past Medical History: Angina, Cancer, COPD, CVA, Diabetes, DVT, High Cholesterol, Hypertension, UT, Stroke, Other Past Surgical History: Cancer Surgery, Hysterectomy Additional Past Surgical Histo: lung CA surgery Alcohol Use: None Drug Use: None General Adult EDM: Chief Complaint: NEURO SYMPTOMS/DEFICITS HPI: HPI: Patient is a 35-year-old female coming in for blurred vision in her left eye. Says she describes it as "dark floaters started while she was driving. Today move around. Denies any curtain type pattern. Denies any complete vision loss. Denies any eye pain or photophobia. Also has noticed she is having twitching to her right cheek. Patient was seen by her primary care provider for hypertension and headache earlier, was discharged and then took her home lisinopril. Patient denies any headaches or trauma to the eye wears glasses, does not wear contacts. Significant medical history including diabetes hypertension, cancer, UT, CVA. Not chronic blood thinners. Review of Systems: Review of Systems: All other systems within normal limits except for as noted in the HPI Current Medications: Current Meds: Current Medications Medications (Trade) Dose Ordered Sig/Cora Start Time Stop Time Status Last Admin Dose Admin Hydralazine HCl (Apresoline) 5 mg 1X ONCE 12/07/20 13:15 12/07/20 13:16 DC 12/07/20 13:18 5 MG Info (Do NOT chart on this entry -- for MONITORING) 1 each PRN DAILY PRN 12/07/20 13:45 12/09/20 13:44 Iohexol (Omnipaque 350 Mg/ml) 100 ml 1X ONCE 12/07/20 13:45 12/07/20 13:46 Allergies: Allergies: Allergies Coded Allergies Type Severity Reaction Last Updated Verified aspartame Allergy Unknown 12/07/20 Yes saccharin Allergy Unknown BLISTERS 12/07/20 Yes sucralose Allergy Unknown blisters 12/07/20 Yes Physical Exam: PE: Constitutional: Well developed, well nourished, no acute distress, non-toxic appearance. [] HENT: Normocephalic, atraumatic, bilateral external ears normal, nose normal. [] Eyes: PERRLA, conjunctiva normal, no discharge, extraocular movements intact, no visual field defects. OS 20/25, OD 20/30. Bedside ultrasound ocular exam normal, no signs of lens detachment, retinal detachment, vitreous hemorrhage. Nondilated optic nerve [] Neck: No rigidity, supple, no stridor. [] Cardiovascular: Regular rate and rhythm, brisk cap refill [] Lungs & Thorax: Non labored symmetric respirations, no tachypnea or respiratory distress [] Abdomen: Soft, nondistended. Skin: Warm, dry, no erythema, no rash. [] Back: Unremarkable Extremities: No deformities, range of motion grossly intact, no lower extremity edema [] Neurologic: Alert and oriented X 3, no focal deficits noted. [] Psychologic: Affect normal, judgement normal, mood normal. [] Current Patient Data: Labs: Laboratory Tests Test 12/07/20 12:45 12/07/20 12:46 White Blood Count 9.9 x10^3/uL (4.0-11.0) Red Blood Count 5.20 x10^6/uL (3.50-5.40) Hemoglobin 14.9 g/dL (12.0-15.5) Hematocrit 44.4 % (36.0-47.0) Mean Corpuscular Volume 85 fL (79-100) Mean Corpuscular Hemoglobin 29 pg (25-35) Mean Corpuscular Hemoglobin Concent 34 g/dL (31-37) Red Cell Distribution Width 16.0 % (11.5-14.5) H Platelet Count 328 x10^3/uL (140-400) Neutrophils (%) (Auto) 62 % (31-73) Lymphocytes (%) (Auto) 30 % (24-48) Monocytes (%) (Auto) 5 % (0-9) Eosinophils (%) (Auto) 3 % (0-3) Basophils (%) (Auto) 1 % (0-3) Neutrophils # (Auto) 6.1 x10^3uL (1.8-7.7) Lymphocytes # (Auto) 3.0 x10^3/uL (1.0-4.8) Monocytes # (Auto) 0.5 x10^3/uL (0.0-1.1) Eosinophils # (Auto) 0.3 x10^3/uL (0.0-0.7) Basophils # (Auto) 0.1 x10^3/uL (0.0-0.2) Prothrombin Time 9.7 SEC (9.4-11.4) Prothrombin Time INR 0.9 (0.9-1.1) D-Dimer (Laly) 0.86 mg/L (0.00-0.50) H Sodium Level 140 mmol/L (136-145) Potassium Level 3.7 mmol/L (3.5-5.1) Chloride Level 105 mmol/L (98-107) Carbon Dioxide Level 27 mmol/L (21-32) Anion Gap 8 (6-14) Blood Urea Nitrogen 12 mg/dL (7-20) Creatinine 0.9 mg/dL (0.6-1.0) Estimated GFR (Cockcroft-Gault) 78.4 BUN/Creatinine Ratio 13 (6-20) Glucose Level 131 mg/dL (70-99) H Calcium Level 9.5 mg/dL (8.5-10.1) Magnesium Level 1.9 mg/dL (1.8-2.4) Total Bilirubin 0.3 mg/dL (0.2-1.0) Aspartate Amino Transferase (AST) 13 U/L (15-37) L Alanine Aminotransferase (ALT) 21 U/L (14-59) Alkaline Phosphatase 136 U/L (46-116) H Troponin I Quantitative < 0.017 ng/mL (0-0.055) Total Protein 8.7 g/dL (6.4-8.2) H Albumin 3.8 g/dL (3.4-5.0) Albumin/Globulin Ratio 0.8 (1.0-1.7) L Glucose (Fingerstick) 144 mg/dL (70-99) H Vital Signs: Vital Signs Date Time Temp Pulse Resp B/P (MAP) Pulse Ox O2 Delivery O2 Flow Rate FiO2 12/07/20 13:18 86 171/101 12/07/20 12:40 98.6 18 97 EKG: EKG: Sinus rhythm, heart rate 80 bpm, normal axis, no ST elevation or depression. [] Radiology/Procedures: Radiology/Procedures: EXAM: Head CT without contrast; CT angiogram of the head and neck with intravenous contrast. HISTORY: Left-sided vision loss. TECHNIQUE: Computed tomographic images of the head were obtained without contrast. Postcontrast imaging of the head and neck was performed following the administration of contrast. Three-dimensional maximum intensity projection images were obtained. *One or more of the following individualized dose reduction techniques were utilized for this examination: 1. Automated exposure control. 2. Adjustment of the mA and/or kV according to patient size. 3. Use of iterative reconstruction technique. COMPARISON: None. FINDINGS: The noncontrast images of the head demonstrate no mass effect or midline shift. There is no hydrocephalus. The powell-white matter differentiation pattern is intact. The orbits are unremarkable. The visualized paranasal sinuses mastoid air cells are clear. There is no suspicious calvarial lesion. The angiographic images demonstrate a bovine aortic arch branching pattern, a normal variant. There is calcified atherosclerotic plaque involving the origin and proximal aspects of the left subclavian artery, resulting in approximately 50-69 percent stenosis of the vessel origin. There is partially calcified atherosclerotic plaque and intimal thickening involving the bilateral common carotid arteries, with less than 50 percent stenosis. There is also partially calcified atherosclerotic plaque involving the carotid bulbs and proximal internal and external carotid arteries. This results in less than 50 percent stenosis at the origins of the left internal and external carotid arteries. There is approximately 50-69 percent stenosis at the origin of the right external carotid artery and 50 percent stenosis of the origin of the right internal carotid artery. There is suggestion of a linear filling defect within the lateral right carotid bulb which is artifact due to partially calcified atherosclerotic plaque. No convincing dissection is seen. There is calcified atherosclerotic plaque involving the cavernous left internal carotid artery, with less than 50 percent stenosis. There is a tiny outpouching along the lateral cavernous segment of the right internal carotid artery which is likely due to slight ulcerated plaque rather than due to a tiny aneurysm. The anterior commuting indicating artery is patent. The middle, anterior and posterior cerebral arteries are patent. The basilar artery is widely patent. The vertebral arteries are codominant.. No aneurysm, vascular malformation or suspicious enhancing lesion is seen. There is no suspicious osseous lesion. There is pulmonary emphysema. There are tiny bilateral upper lobe pulmonary nodules measuring up to 3 mm. IMPRESSION: 1. No acute intracranial finding. Note is made that MRI is more sensitive for acute infarction. 2. Moderate atherosclerotic plaque involving the origin and proximal left subclavian artery, resulting in 50-69 percent stenosis. 3. Dffp-yn-jmdtutlq atherosclerotic plaque involving the carotid bifurcations, resulting in less than 50 percent stenosis involving the bilateral internal carotid and left external carotid arteries in approximately 50-69 percent stenosis involving the origin of the right external carotid artery. There is also atherosclerotic plaque within the cavernous internal carotid arteries with less than 50 percent stenosis. There may be a tiny ulcerated plaque within the cavernous right ICA. No convincing aneurysm is seen in this location. 4. Pulmonary emphysema and multiple small bilateral upper lobe or nodules measuring up to 3 mm. Follow-up can be performed in one year if there are risk factors for pulmonary neoplasm. [] Heart Score: C/O Chest Pain: No Risk Factors: Risk Factors: DM, Current or recent (<one month) smoker, HTN, HLP, family history of CAD, obesity. Risk Scores: Score 0 - 3: 2.5% MACE over next 6 weeks - Discharge Home Score 4 - 6: 20.3% MACE over next 6 weeks - Admit for Clinical Observation Score 7 - 10: 72.7% MACE over next 6 weeks - Early Invasive Strategies Course & Med Decision Making: Course & Med Decision Making Pertinent Labs and Imaging studies reviewed. (See chart for details) Normal ultrasound of the eye without any signs of buccal attachment. Discussed return precautions for worsening symptoms or signs of retinal attachment. Discussed with neurology group nurse at [facility], will follow up in clinic. She stated she does not to be seen emergently [] Tricia Disclaimer: Tricia Disclaimer: This electronic medical record was generated, in whole or in part, using a voice recognition dictation system. Departure Departure: Impression: Primary Impression: Floaters in visual field Disposition: HOME / SELF CARE / HOMELESS Condition: STABLE Referrals: KATELYNN ADAIR (PCP) Patient Instructions: Eye - Floaters CATALINA ZIEGLER MD Dec 07, 2020 13:51
--- NOTE | 2020-12-07 14:08 | RAD ---
EXAM: Head CT without contrast; CT angiogram of the head and neck with intravenous contrast. HISTORY: Left-sided vision loss. TECHNIQUE: Computed tomographic images of the head were obtained without contrast. Postcontrast imagi ng of the head and neck was performed following the administration of contrast. Three-dimensional max imum intensity projection images were obtained. *One or more of the following individualized dose reduction techniques were utilized for this examina tion: 1. Automated exposure control. 2. Adjustment of the mA and/or kV according to patient size. 3. Use of iterative reconstruction technique. COMPARISON: None. FINDINGS: The noncontrast images of the head demonstrate no mass effect or midline shift. There is no hydrocephalus. The powell-white matter differentiation pattern is intact. The orbits are unremarkable. The visualized paranasal sinuses mastoid air cells are clear. There is no suspicious calvarial lesio n. The angiographic images demonstrate a bovine aortic arch branching pattern, a normal variant. There i s calcified atherosclerotic plaque involving the origin and proximal aspects of the left subclavian a rtery, resulting in approximately 50-69 percent stenosis of the vessel origin. There is partially edison cified atherosclerotic plaque and intimal thickening involving the bilateral common carotid arteries, with less than 50 percent stenosis. There is also partially calcified atherosclerotic plaque involvi ng the carotid bulbs and proximal internal and external carotid arteries. This results in less than 5 0 percent stenosis at the origins of the left internal and external carotid arteries. There is approx imately 50-69 percent stenosis at the origin of the right external carotid artery and 50 percent sten osis of the origin of the right internal carotid artery. There is suggestion of a linear filling defe ct within the lateral right carotid bulb which is artifact due to partially calcified atherosclerotic plaque. No convincing dissection is seen. There is calcified atherosclerotic plaque involving the cavernous left internal carotid artery, with less than 50 percent stenosis. There is a tiny outpouching along the lateral cavernous segment of the right internal carotid artery which is likely due to slight ulcerated plaque rather than due to a ti ny aneurysm. The anterior commuting indicating artery is patent. The middle, anterior and posterior c erebral arteries are patent. The basilar artery is widely patent. The vertebral arteries are codomina nt.. No aneurysm, vascular malformation or suspicious enhancing lesion is seen. There is no suspicious osseous lesion. There is pulmonary emphysema. There are tiny bilateral upper l obe pulmonary nodules measuring up to 3 mm. IMPRESSION: 1. No acute intracranial finding. Note is made that MRI is more sensitive for acute infarction. 2. Moderate atherosclerotic plaque involving the origin and proximal left subclavian artery, resultin g in 50-69 percent stenosis. 3. Wotq-tw-osfuyndf atherosclerotic plaque involving the carotid bifurcations, resulting in less than 50 percent stenosis involving the bilateral internal carotid and left external carotid arteries in a pproximately 50-69 percent stenosis involving the origin of the right external carotid artery. There is also atherosclerotic plaque within the cavernous internal carotid arteries with less than 50 perce nt stenosis. There may be a tiny ulcerated plaque within the cavernous right ICA. No convincing aneur ysm is seen in this location. 4. Pulmonary emphysema and multiple small bilateral upper lobe or nodules measuring up to 3 mm. Follo w-up can be performed in one year if there are risk factors for pulmonary neoplasm. PQRS Compliance Statement - Stenosis calculations for CT, MR and conventional angiography are based u rishi measurement of the distal ICA diameter in accordance with the NASCET methodology. Stenosis calcu lations for carotid ultrasound studies are derived from validated velocity criteria which are known t o correlate with the NASCET methodology. Electronically signed by: Sheridan Dubose MD (12/07/2020 2:06 PM) [id number]
[2020-12-07 14:55] VITALS: BP 137/75
--- NOTE | 2020-12-07 16:27 | EKG ---
[address] [address] Test Date: 2020-12-07 Test Time: 12:46:55 Pat Name: TC HERNANDEZ Department: Room: Gender: F [employer] Bench: GWEN : 1965 Requested By: CATALINA ZIEGLER Order Number: [id number] Reading MD: Measurements Intervals [place] Rate: 88 P: 23 SD: 180 QRS: 41 QRSD: 82 T: 48 QT: 360 QTc: 439 Interpretive Statements SINUS RHYTHM NORMAL ECG RI6.02 No previous ECG available for comparison
== END 2020-12-07 14:55 | disposition home or self-care (01) ==
LOC: ER 12:31
DX: H43.392 Other vitreous opacities, left eye (principal); J44.9 Chronic obstructive pulmonary disease, unspecified; E11.9 Type 2 diabetes mellitus without complications; E78.00 Pure hypercholesterolemia, unspecified; I10 Essential (primary) hypertension; I25.2 Old myocardial infarction; Z86.73 Personal history of transient ischemic attack (TIA), and cerebral infarction without residual deficits; Z86.718 Personal history of other venous thrombosis and embolism; Z88.8 Allergy status to other drugs, medicaments and biological substances
CPT/HCPCS: 36415; 70450; 70496; 70498; 80053; 82947; 83735; 84484; 85025; 85379; 85610; 93005; 96374; 99285; J0360; Q9967

== ENCOUNTER → 2021-02-20 | Outpatient (CLI) | payer OTHER ==
[~2021-02-20] MED LIST changes: +IOHEXOL 300 MG/ML 75 ML VIAL. IV ONE; -OMEP40CA45 PO; +OMEP40CA7 PO
[2021-02-20 10:15] LABS: CREATININE 0.9 mg/dL (0.6-1.0); GFR 78.4
== END ==
LOC: CT 08:52
PROVIDERS: ATTEND Family Medicine
DX: C34.92 Malignant neoplasm of unspecified part of left bronchus or lung (principal)
CPT/HCPCS: 36415; 82565; 84520

== ENCOUNTER → 2021-02-22 | Outpatient (CLI) | payer OTHER ==
--- NOTE | 2021-02-22 18:15 | RAD ---
EXAM: CT CHEST WITH AND WITHOUT CONTRAST HISTORY: Lung cancer with lobectomy. Feels like lump in left lung. COMPARISON: CTA chest 04/24/2019 TECHNIQUE: Helical CT of the chest performed with and without contrast after administration of intra venous contrast. Coronal and sagittal reformats were obtained. One or more of the following individualized dose reduction techniques were utilized for this examinat ion: 1. Automated exposure control 2. Adjustment of the mA and/or kV according to patient size 3. Use of iterative reconstruction technique. FINDINGS: Thyroid gland and thoracic inlet: Normal Heart and great vessels: Heart is normal in size. No pericardial effusion. There are coronary artery calcifications. The thoracic aorta is normal in caliber relative calcified aortic atherosclerosis. Mediastinum and arely: Multiple prominent mediastinal and hilar lymph nodes are unchanged. For example , a right paratracheal and measures 1.1 cm short axis. A right hilar lymph node measures 1.6 cm short axis. Lungs and pleura: There are new surgical changes of left lower lobectomy. There are numerous new smal l ill-defined pulmonary nodules throughout both lungs measuring up to about 6 mm. Many of these are c avitary. There is moderate emphysema. There is mosaic attenuation. No pleural effusion. Airways are c lear. Chest wall and axillae: No axillary lymphadenopathy. Upper abdomen: Unremarkable. Bones: No acute osseous abnormalities. IMPRESSION: 1. Numerous new ill-defined subcentimeter pulmonary nodules throughout the lungs, many of which are c avitary. This is superimposed on centrilobular emphysema with mosaic attenuation. Findings are nonspe cific and could be due to atypical infection, pneumonitis, atypical appearance of metastatic disease, septic pulmonary emboli, vasculitis. 2. Unchanged prominent mediastinal and hilar lymph nodes. 3. Interval left lower lobectomy. Electronically signed by: Gillian Cr MD (02/22/2021 6:13 PM) [id number]
== END ==
LOC: CT 14:48
PROVIDERS: ATTEND Family Medicine
DX: C34.92 Malignant neoplasm of unspecified part of left bronchus or lung (principal); J43.2 Centrilobular emphysema; R91.8 Other nonspecific abnormal finding of lung field
CPT/HCPCS: 71270; Q9967

== ENCOUNTER 2021-03-03 17:46 | Emergency (ER) | payer OTHER ==
[~2021-03-03] VITALS: Ht 160 cm; Wt 100.0 kg
[~2021-03-03 17:46] MED LIST changes: -IOHEXOL 300 MG/ML 75 ML VIAL. IV ONE
--- NOTE | 2021-03-03 18:34 | PHYS DOC ---
Past History Past Medical History: Angina, Cancer, COPD, CVA, Diabetes, DVT, High Cholesterol, Hypertension, [place], Stroke, Other (SUAD FARIAS APRN) Past Surgical History: Cancer Surgery, Hysterectomy Additional Past Surgical Histo: lung CA surgery (SUAD FARIAS APRN) Alcohol Use: None Drug Use: None (SUAD FARIAS APRN) General Adult EDM: Chief Complaint: PAIN ON URINATION HPI: HPI: Patient is a 55-year-old female who presents to the ER today with dysuria, urinary frequency, urgency, hematuria that started today. No recent UTI the patient reports that she normally gets UTIs after swimming and she was recently swimming in the [place]. Patient denies nausea, vomiting, fevers, abdominal pain, back pain. (SUAD FARIAS APRN) Review of Systems: Review of Systems: 14 body systems of the review of systems have been reviewed. See HPI for pertinent positive and negative responses, otherwise all other systems are negative, nonpertinent or noncontributory (SUAD FARIAS APRN) Allergies: Allergies: Allergies Coded Allergies Type Severity Reaction Last Updated Verified aspartame Allergy Unknown 12/07/20 Yes saccharin Allergy Unknown BLISTERS 12/07/20 Yes sucralose Allergy Unknown blisters 12/07/20 Yes (SUAD FARIAS APRN) Physical Exam: PE: Constitutional: Well developed, well nourished, no acute distress, non-toxic appearance. [] HENT: Normocephalic, atraumatic Eyes: PERRL, conjunctiva normal, no discharge. [] Neck: Normal range of motion, no stridor Cardiovascular:Heart rate regular rhythm, no murmur [] Lungs & Thorax: Bilateral breath sounds clear to auscultation [] Abdomen: Bowel sounds normal, soft, no tenderness, no masses, no pulsatile masses. [] Skin: Warm, dry, no erythema, no rash. [] Back: No tenderness, no CVA tenderness. [] Extremities: No tenderness, no cyanosis, no clubbing, ROM intact, no edema. [] Neurologic: Alert and oriented X 3, normal motor function, normal sensory function, no focal deficits noted. [] Psychologic: Affect normal, judgement normal, mood normal. [] (SUAD FARIAS APRN) EKG: EKG: [] (SUAD FARIAS APRN) Radiology/Procedures: Radiology/Procedures: [] (SUAD FARIAS APRN) Heart Score: C/O Chest Pain: No Risk Factors: Risk Factors: DM, Current or recent (<one month) smoker, HTN, HLP, family history of CAD, obesity. Risk Scores: Score 0 - 3: 2.5% MACE over next 6 weeks - Discharge Home Score 4 - 6: 20.3% MACE over next 6 weeks - Admit for Clinical Observation Score 7 - 10: 72.7% MACE over next 6 weeks - Early Invasive Strategies (SUAD FARIAS APRN) Course & Med Decision Making: Course & Med Decision Making Pertinent Labs and Imaging studies reviewed. (See chart for details) Patient is a 55-year-old female being seen in the ER for dysuria, hematuria, frequency/urgency. Her UA was positive for UTI. She was treated with an antibiotic and given Pyridium, first dose given in ER. I discussed with patient all findings and diagnostic testing as well as the need to follow-up with PCP for further evaluation and treatment or return to the ER if any new or worsening symptoms. Strict return precautions were also discussed at length. Patient voiced understanding and agreement with the plan. Patient is hemodynamically stable at the time of disposition. (SUAD FARIAS APRN) Course & Med Decision Making Did not see or evaluate patient. Agree with [facility] SERVICE AGENT's work-up and disposition per note. (RBOYN ALMANZAR MD) Dragon Disclaimer: Dragon Disclaimer: This electronic medical record was generated, in whole or in part, using a voice recognition dictation system. (SUAD FARIAS APRN) Departure Departure: Impression: Primary Impression: Urinary tract infection Qualified Codes: N30.01 - Acute cystitis with hematuria Disposition: HOME / SELF CARE / HOMELESS Condition: GOOD Referrals: KATELYNN ADAIR (PCP) Patient Instructions: Urinary Tract Infection Additional Instructions: ER today for urinary frequency, urgency, dysuria. Your UA was positive for urinary tract infection. We are sending you home with a medication to help with the pain with urination and an antibiotic. Please make sure that you start and finish the antibiotic completely. You can also take Tylenol/ibuprofen for pain at home. Please ensure that you are increasing your fluids. Please avoid any bladder irritants such as sugary beverages, caffeine, alcohol. If you develop fever, nausea, vomiting, increased pain, increased blood in your urine, back pa in, abdominal pain please return to the ER. EMERGENCY DEPARTMENT GENERAL DISCHARGE INSTRUCTIONS Thank you for coming to [facility] (ED) today and trusting us with you care. We trust that you had a positivie experience in our Emergency Department. If you wish to speak to the department management, you may call the director at [phone]. YOUR FOLLOW UP INSTRUCTIONS ARE FOLLOWS: 1. Do you have a private Doctor? If you do not have a private doctor, please ask for a resource list of physicians or clinics that may be able to assist you with follow up care. 2. The Emergency Physician has interpreted your x-rays. The X-Ray specialist will also review them. If there is a change in the findings, you will be notified in 48 hours when at all possible. 3. A lab test or culture has been done, your results will be reviewed and you will be notified if you need a change in treatment. ADDITIONAL INSTRUCTIONS AND INFORMATION: 1. Your care today has been supervised by a physician who is specially trained in emergency care. Many problems require more than one evaluation for a complete diagnosis and treatment. We recommend that you schedule your follow up appointment as recommended to ensure complete treatment of you illness or injury. If you are unable to obtain follow up care and continue to have a problem, or if your condition worsens, we recommend that you return to the ED. 2. We are not able to safely determine your condition over the phone nor are we able to give sound medical advice over the phone. For these safety reasons, if you call for medical advice we will ask you to come to the ED for further evaluation. 3. If you have any questions regarding these discharge instructions please call the ED at [phone]. SAFETY INFORMATION: In the interest of safety, wellness, and injury prevention; we encourage you to wear your sealbelt, if you smoke; quite smoking, and we encourage family to use a protective helmet for bicycling and other sporting events that present an increased risk for head injury. IF YOUR SYMPTOMS WORSEN OR NEW SYMPTOMS DEVELOP, OR YOU HAVE CONCERNS ABOUT YOUR CONDITION; OR IF YOUR CONDITION WORSENS WHILE YOU ARE WAITING FOR YOUR FOLLOW UP APPOINTMENT; EITHER CONTACT YOUR PRIMARY CARE DOCTOR, THE PHYSICIAN WHOSE NAME AND NUMBER YOU WERE GIVEN, OR RETURN TO THE ED IMMEDIATELY. Scripts Phenazopyridine Hcl (PYRIDIUM) 200 Mg Tablet 1 TAB PO TID for urinary discomfort for 3 Days, #9 TAB 0 Refills Prov: SUAD FARIAS APRN 03/03/21 Nitrofurantoin Monohyd/M-Cryst (MACROBID 100 MG CAPSULE) 100 Mg Capsule 100 CAP PO BID for UTI for 5 Days, #1000 CAP 0 Refills Prov: SUAD FARIAS APRN 03/03/21 SUAD FARIAS APRN Mar 03, 2021 18:34 ROBYN ALMANZAR MD Mar 04, 2021 00:42
[2021-03-03 19:49] LABS: BACTERIA,URINE MOD /HPF (0-FEW); BILIRUBIN,URINE NEG (NEG); CLARITY,URINE CLOUDY; COLOR,URINE YELLOW; GLUCOSE,URINE NEG (NEG); NITRITE,URINE NEG (NEG); SQUAMOUS EPITHELIAL CELL,UR FEW /LPF; UROBILINOGEN,URINE 0.2 mg/dL (0.2 mg/dL); WBC,URINE >40 /HPF (0-4)
[2021-03-03] MEDS ORDERED: NITR100C62 PO (20:14)
[2021-03-03] MEDS ORDERED: PHEN-318 PO (20:14)
[2021-03-03 20:25] VITALS: BP 128/76
[2021-03-03] MEDS ORDERED: NITROFURANTOIN MONOHYD/M-CRYST 100 MG CAPSULE. PO ONE (20:45)
[2021-03-03] MEDS ORDERED: PHENAZOPYRIDINE 200 MG TABLET. PO ONE (20:45)
== END 2021-03-03 20:28 | disposition home or self-care (01) ==
LOC: ER 17:46
DX: N30.01 Acute cystitis with hematuria (principal); J44.9 Chronic obstructive pulmonary disease, unspecified; E11.9 Type 2 diabetes mellitus without complications; E78.00 Pure hypercholesterolemia, unspecified; I10 Essential (primary) hypertension; I25.2 Old myocardial infarction; Z86.73 Personal history of transient ischemic attack (TIA), and cerebral infarction without residual deficits; Z86.718 Personal history of other venous thrombosis and embolism; Z88.8 Allergy status to other drugs, medicaments and biological substances
CPT/HCPCS: 81001; 87086; 99283

== ENCOUNTER → 2021-05-06 | Outpatient (CLI) | payer OTHER ==
[~2021-05-06] MED LIST changes: -DOXY100C2 PO; +DOXY100C3 PO; +NITR100C62 PO; +PHEN-318 PO
--- NOTE | 2021-05-06 16:37 | RAD ---
CT of the chest without contrast 05/06/2021 INDICATION: Follow-up pulmonary nodules. COMPARISON STUDY: CT of the chest with contrast February 22, 2021 TECHNIQUE: Multidetector CT imaging of the chest was performed without the administration of contrast . FINDINGS: Redemonstration of diffuse nodular opacities, some of which have a cavitary component throu ghout the bilateral lungs involving all lobes. Overall the size and number of nodules has slightly de creased in the interim, but is still significant. Diffuse cystic changes are also seen. Attenuation o f the lungs remains heterogenous, particularly in the lung bases. No pneumothorax, or pleural effusio n. Heart size is normal. Trace pericardial fluid noted, unchanged. Mildly prominent prevascular subca rinal, and right hilar lymph nodes appear similar, though evaluation is limited without contrast. Guerrero ited evaluation of the upper abdomen demonstrates a nodular appearance of the adrenal glands which is unchanged. No acute osseous changes are noted in the interim. IMPRESSION: Minimal improvement in but persistent nodular opacities throughout the bilateral lungs wh ich have a central cavitary component. Cystic diffuse cystic pulmonary disease also noted heterogenou s appearance of the lungs, particularly in the bases most likely representing air trapping given lack of contrast. Findings may be due to a atypical or chronic infectious process or pneumonitis. Metasta tic disease is also possible, particularly in the setting of ongoing treatment. CT DOSING PQRS STATEMENT: One or more of the following individualized dose reduction techniques were utilized for this examinat ion: 1. Automated exposure control 2. Adjustment of the mA and/or kV according to patient size 3. Use of iterative reconstruction technique Electronically signed by: Elton Jones MD (05/06/2021 4:34 PM) [id number]
== END ==
LOC: CT 15:27
PROVIDERS: ATTEND Internal Medicine
DX: R91.8 Other nonspecific abnormal finding of lung field (principal); J98.4 Other disorders of lung
CPT/HCPCS: 71250

== ENCOUNTER → 2021-09-04 | Outpatient (CLI) | payer OTHER ==
[~2021-09-04] MED LIST changes: -LISI-517 PO; +LISI5TAB15 PO
--- NOTE | 2021-09-04 15:18 | RAD ---
STUDY: CT chest without contrast INDICATION: Lung nodule follow-up. COMPARISON: Most recent CT chest 05/06/2021 TECHNIQUE: Helical CT imaging of the chest performed without the use of intravenous contrast. Sagitta l and coronal reformats were obtained. One or more of the following individualized dose reduction techniques were utilized for this examinat ion: 1. Automated exposure control 2. Adjustment of the mA and/or kV according to patient size 3. Use of iterative reconstruction technique. FINDINGS: Direct comparison of pulmonary nodules is made difficult by 1 mm sections on the current exam compare d to 3 mm on the 05/06/2021 and 02/22/2021 studies. Lungs: Innumerable pulmonary nodules again demonstrated on the right. Scattered nodules are smaller i n size such as several of the peripherally distributed nodules within the right middle lobe seen on t he prior. The small cavitary nodules on both the right and left seen on the comparison are less notic eable on this exam. A nodular focus at the left upper lobe on image 55 series 2 was at a site of prev ious cavitation. Numerous pulmonary nodules persist on the left without a definitive nodule that has significantly increased in size. Cystic pulmonary disease again noted and a mosaic attenuation patter n of the lungs. Surgical changes bilaterally with suture chain. Vasculature: Multifocal calcific atherosclerosis with coronary artery involvement. Unchanged aortic c aliber. The main pulmonary artery is again noted to be mildly dilated. Mediastinum/arely: Supernumerary mediastinal lymph nodes similar in size and number from the compariso n. A branch customer service representative mildly enlarged pretracheal lymph node on image 63 series 2 again measures 1.2 cm AP. No increasing pericardial effusion. Neck/axilla/chest wall: No axillary adenopathy by size criteria. Bones: No significant interval change. Upper abdomen: Nodular morphology of the left adrenal gland is unchanged. IMPRESSION: 1. Innumerable pulmonary nodules persist on both the right and left but there is no single nodule th at has notably increased in size from the most recent comparison. Scattered cavitary foci have dimini shed. No newly apparent nodule that would warrant short-term follow-up. Ongoing surveillance is recom mended the frequency of which depends on risk factors and if there is any known history of malignancy . 2. Cystic lung disease and a mosaic attenuation pattern of the lungs as has been seen on comparisons . 3. Supernumerary mediastinal lymph nodes some of which are mildly enlarged but without change. 4. Additional chronic observations outlined in the body of the report. Electronically signed by: MARTINEZ MORRIS MD (09/04/2021 3:16 PM) [facility]
== END ==
LOC: CT 11:14
PROVIDERS: ATTEND Internal Medicine
DX: R91.8 Other nonspecific abnormal finding of lung field (principal); J98.4 Other disorders of lung
CPT/HCPCS: 71250

== ENCOUNTER 2021-11-09 16:21 | Observation (INO) | payer OTHER ==
[~2021-11-09] VITALS: Ht 160 cm; Wt 98.5 kg
[2021-11-09] MEDS ORDERED: ASPIRIN CHEWABLE 81 MG TABLET. PO ONE (16:45)
[2021-11-09] MEDS ORDERED: MORPHINE SULFATE 4 MG/ML DISP.SYRIN. IV ONE (16:45)
[2021-11-09] MEDS ORDERED: ONDANSETRON PF 4 MG/2 ML VIAL. IV ONE (16:45)
[2021-11-09 16:50] LABS: BASO % 0 % (0-3); EOS # 0.3 x10^3/uL (0.0-0.7); EOS % 3 % (0-3); HEMATOCRIT 43.1 % (36.0-47.0); HEMOGLOBIN 14.2 g/dL (12.0-15.5); LYMPH # 3.3 x10^3/uL (1.0-4.8); LYMPH % 34 % (24-48); MEAN CORPUSCULAR HEMOGLOBIN 28 pg (25-35); MEAN CORPUSCULAR HGB CONC 33 g/dL (31-37); MEAN CORPUSCULAR VOLUME 85 fL (79-100); MONO # 0.7 x10^3/uL (0.0-1.1); MONO % 8 % (0-9); NEUT # 5.3 x10^3uL (1.8-7.7); NEUT % 55 % (31-73); PLATELET COUNT 284 x10^3/uL (140-400); RED BLOOD COUNT 5.06 x10^6/uL (3.50-5.40); RED CELL DISTRIBUTION WIDTH 15.6 % (11.5-14.5); WHITE BLOOD COUNT 9.6 x10^3/uL (4.0-11.0)
--- NOTE | 2021-11-09 17:05 | RAD ---
INDICATION: Reason: CP / Spl. Instructions: / History: COMPARISON: September 04, 2021 FINDINGS: Single view of chest obtained. Cardiac silhouette is prominent in size with calcific atherosclerosis. Mild interstitial and groundglass opacities bilaterally. IMPRESSION: * Mild interstitial and groundglass opacities bilaterally. A large portion of this is chronic in anneliese ure from the patient's chronic interstitial lung disease but superimposed mild edema or interstitial infiltrate may be present as well given the slight increase. There is also again some regions of nodu larity. Electronically signed by: Dontrell Grewal MD (11/09/2021 5:02 PM) [id number]
--- NOTE | 2021-11-09 17:10 | PHYS DOC ---
Past History Past Medical History: Angina, Cancer, COPD, CVA, Diabetes, DVT, High Cholesterol, Hypertension, UT, Stroke, Other Past Surgical History: Cancer Surgery, Hysterectomy Additional Past Surgical Histo: lung CA surgery Alcohol Use: None Drug Use: None Adult General Chief Complaint Chief Complaint: CHEST PAIN HPI HPI Patient is a 56-year-old female presenting to the emergency department for evaluation of chest pressure that she says started 2 days ago and has persisted. She describes it as a heaviness on the right side of her chest that does not radiate but does cause her shortness of breath diaphoresis but no nausea or vomiting. She says that it comes and goes but is not associate with anything she can think of including deep breaths movements exertion eating drinking or anything else that she can think of. Patient says that she has had 2 prior angioplasties approximately 10 years ago but has no stents. She thinks that she had a stress test 1 year ago that was read as normal. She has multiple cardiac risk factors including diabetes hypertension high cholesterol. She appears uncomfortable but is nontoxic. Review of Systems Review of Systems Constitutional: Denies fever or chills [] Eyes: Denies change in visual acuity, redness, or eye pain [] HENT: Denies nasal congestion or sore throat [] Respiratory: Denies cough. + shortness of breath [] Cardiovascular: Positive chest pain GI: Denies abdominal pain, nausea, vomiting, bloody stools or diarrhea [] : Denies dysuria or hematuria [] Musculoskeletal: Denies back pain or joint pain [] Integument: Denies rash or skin lesions [] Neurologic: Denies headache, focal weakness or sensory changes [] All other systems were reviewed and found to be within normal limits, except as documented in this note. Current Medications Current Medications Current Medications Medications (Trade) Dose Ordered Sig/Cora Start Time Stop Time Status Last Admin Dose Admin Aspirin (Aspirin Chewable) 324 mg 1X ONCE 11/09/21 16:45 11/09/21 16:46 DC 11/09/21 16:39 324 MG Morphine Sulfate (Morphine 4mg Syringe) 4 mg 1X ONCE 11/09/21 16:45 11/09/21 16:46 DC 11/09/21 16:40 4 MG Ondansetron HCl (Zofran) 4 mg 1X ONCE 11/09/21 16:45 11/09/21 16:46 DC 11/09/21 16:40 4 MG Allergies Allergies Allergies Coded Allergies Type Severity Reaction Last Updated Verified aspartame Allergy Unknown 12/07/20 Yes saccharin Allergy Unknown BLISTERS 12/07/20 Yes sucralose Allergy Unknown blisters 12/07/20 Yes Physical Exam Physical Exam Constitutional: Well developed, well nourished, no acute distress, non-toxic appearance. [] HENT: Normocephalic, atraumatic, bilateral external ears normal, oropharynx moist, no oral exudates, nose normal. [] Eyes: PERRLA, EOMI, conjunctiva normal, no discharge. [] Neck: Normal range of motion, no tenderness, supple, no stridor. [] Cardiovascular:Heart rate regular rhythm, no murmur [] Lungs & Thorax: Bilateral breath sounds clear to auscultation [] Abdomen: Bowel sounds normal, soft, no tenderness, no masses, no pulsatile masses. [] Skin: Warm, dry, no erythema, no rash. [] Back: No tenderness, no CVA tenderness. [] Extremities: No tenderness, no cyanosis, no clubbing, ROM intact, no edema. [] Neurologic: Alert and oriented X 3, normal motor function, normal sensory function, no focal deficits noted. [] Current Patient Data Vital Signs Vital Signs Date Time Temp Pulse Resp B/P (MAP) Pulse Ox O2 Delivery O2 Flow Rate FiO2 11/09/21 16:29 93 18 163/110 (127) 99 Lab Results Laboratory Tests Test 11/09/21 16:30 White Blood Count 9.6 x10^3/uL (4.0-11.0) Red Blood Count 5.06 x10^6/uL (3.50-5.40) Hemoglobin 14.2 g/dL (12.0-15.5) Hematocrit 43.1 % (36.0-47.0) Mean Corpuscular Volume 85 fL (79-100) Mean Corpuscular Hemoglobin 28 pg (25-35) Mean Corpuscular Hemoglobin Concent 33 g/dL (31-37) Red Cell Distribution Width 15.6 % (11.5-14.5) H Platelet Count 284 x10^3/uL (140-400) Neutrophils (%) (Auto) 55 % (31-73) Lymphocytes (%) (Auto) 34 % (24-48) Monocytes (%) (Auto) 8 % (0-9) Eosinophils (%) (Auto) 3 % (0-3) Basophils (%) (Auto) 0 % (0-3) Neutrophils # (Auto) 5.3 x10^3uL (1.8-7.7) Lymphocytes # (Auto) 3.3 x10^3/uL (1.0-4.8) Monocytes # (Auto) 0.7 x10^3/uL (0.0-1.1) Eosinophils # (Auto) 0.3 x10^3/uL (0.0-0.7) Basophils # (Auto) 0.0 x10^3/uL (0.0-0.2) EKG EKG Sinus rhythm at 90 bpm with right axis deviation no ST elevation or depression but there is wandering baseline V4 through V6 with inverted T waves in leads V2 and V3. Radiology/Procedures Radiology/Procedures [] Heart Score C/O Chest Pain: Yes HEART Score for Chest Pain: HEART Score for Chest Pain Response (Comments) Value History Moderately Suspicious 1 ECG Nonspecific Repolarizatio 1 Age >45 - < 65 1 Risk Factors >3 Risk Factors or Hx CAD 2 Troponin < Normal Limit 0 Total 5 Risk Factors: Risk Factors: DM, Current or recent (<one month) smoker, HTN, HLP, family history of CAD, obesity. Risk Scores: Risk Factors: DM, Current or recent (<one month) smoker, HTN, HLP, family history of CAD, obesity. Course & Med Decision Making Course & Med Decision Making Patient does have an elevated heart score certainly does have high risk of coronary artery disease. I will check labs and imaging treat her symptoms and reassess. Given patient's heart score is equal to 5 I recommended admission the hospital and she consented to admission as I spoke to the box toe stitcher Dr. Freeman and he is willing to have her admitted here at [facility] and Dr. Plasencia agreed to accept the patient. Dragon Disclaimer Dragon Disclaimer This electronic medical record was generated, in whole or in part, using a voice recognition dictation system. Departure Departure: Impression: Primary Impression: Chest pain at rest Additional Impression: Malignant hypertension Disposition: ADMITTED INPATIENT Admitting Physician: Anna Plasencia Condition: IMPROVED Referrals: KATELYNN ADAIR (PCP) Problem Qualifiers CESILIA SIMONS DO Nov 09, 2021 17:10
[2021-11-09 17:13] LABS: CALCIUM 9.6 mg/dL (8.5-10.1); CREATININE 0.8 mg/dL (0.6-1.0); GFR 89.5
[2021-11-09 17:26] LABS: ALBUMIN 3.6 g/dL (3.4-5.0); ALBUMIN/GLOBULIN RATIO 0.9 (1.0-1.7); TOTAL BILIRUBIN 0.2 mg/dL (0.2-1.0); TOTAL PROTEIN 7.5 g/dL (6.4-8.2)
[2021-11-09] MEDS ORDERED: ONDANSETRON PF 4 MG/2 ML VIAL. IVP PRN (18:15)
[2021-11-09] MEDS ORDERED: MORPHINE SULFATE 4 MG/ML DISP.SYRIN. IVP PRN (18:15)
--- NOTE | 2021-11-09 18:19 | EKG ---
[address] [address] Test Date: 2021-11-09 Test Time: 16:32:16 Pat Name: TC HERNANDEZ Department: Room: ED [place] [address] Gender: F Sales Administrator: ARMANDO : 1965 Requested By: CESILIA SIMONS Order Number: [id number] Reading MD: Red Freeman MD Measurements Intervals [place] Rate: 99 P: 91 GA: 180 QRS: 129 QRSD: 74 T: 133 QT: 354 QTc: 460 Interpretive Statements SINUS RHYTHM PROBABLE RODRIGUEZ LEAD MISPLACEMENT NON-SPECIFIC ST/T CHANGES Electronically Signed On 11-10-2021 16:26:41 CDT by Red Freeman MD
--- NOTE | 2021-11-09 19:00 | NUR ---
The patient, TC HERNANDEZ, 56 y/o, F admitted by JAZMIN COLMENARES MD, was given written information regarding hospital policies, unit procedures and contact persons. Valuables were checked and logged. Call light in reach.
[2021-11-09 19:15] VITALS: BP 138/90
[2021-11-09] MEDS ORDERED: AMIT50TA PO (21:27)
[2021-11-09] MEDS ORDERED: LISI1TAB37 PO (21:27)
[2021-11-09] MEDS ORDERED: FLUT1BLS3 IH (21:27)
[2021-11-09] MEDS ORDERED: LEVO137T2 PO (21:27)
[2021-11-09] MEDS ORDERED: ATOR10TA PO (22:14)
[2021-11-09] MEDS ORDERED: AMITRIPTYLINE HCL 50 MG TABLET PO SCH (23:00)
[2021-11-09] MEDS ORDERED: LISINOPRIL 5 MG TABLET. PO SCH (23:00)
[2021-11-09] MEDS ORDERED: ATORVASTATIN CALCIUM 10 MG TABLET. PO SCH (23:00)
[2021-11-09 23:45] LABS: BACTERIA,URINE MOD /HPF (0-FEW); CLARITY,URINE CLEAR; COLOR,URINE YELLOW; GLUCOSE,URINE NEG (NEG); NITRITE,URINE NEG (NEG); SQUAMOUS EPITHELIAL CELL,UR MOD /LPF
[2021-11-10 00:18] VITALS: BP 116/69
--- NOTE | 2021-11-10 03:57 | NUR ---
Nursing note: Pt c/o mild pain in chest, from R collarbone to L midsternal. Pt was satting 84% on RA on admission; placed on 2L NC with improvement to low-mid 90s spO2.
[2021-11-10 05:32] VITALS: BP 109/71
[2021-11-10] MEDS ORDERED: LEVOTHYROXINE 137 MCG TABLET PO SCH (06:00)
[2021-11-10] MEDS: IPRATRPIUM/ALBUTEROL 0.5/2.5MG 3 ML NEBU. NEB SCH ×3 (06:16→15:40)
[2021-11-10 07:35] LABS: BASO % 1 % (0-3); EOS # 0.3 x10^3/uL (0.0-0.7); EOS % 3 % (0-3); HEMATOCRIT 39.9 % (36.0-47.0); HEMOGLOBIN 13.1 g/dL (12.0-15.5); LYMPH # 2.5 x10^3/uL (1.0-4.8); LYMPH % 32 % (24-48); MEAN CORPUSCULAR HEMOGLOBIN 28 pg (25-35); MEAN CORPUSCULAR HGB CONC 33 g/dL (31-37); MEAN CORPUSCULAR VOLUME 87 fL (79-100); MONO # 0.6 x10^3/uL (0.0-1.1); MONO % 8 % (0-9); NEUT # 4.5 x10^3uL (1.8-7.7); NEUT % 57 % (31-73); PLATELET COUNT 241 x10^3/uL (140-400); RED BLOOD COUNT 4.61 x10^6/uL (3.50-5.40); RED CELL DISTRIBUTION WIDTH 15.9 % (11.5-14.5); WHITE BLOOD COUNT 7.8 x10^3/uL (4.0-11.0)
[2021-11-10] MEDS ORDERED: BUDESONIDE 0.5 MG/2 ML NEBU NEB SCH (08:00)
[2021-11-10] MEDS ORDERED: LISINOPRIL 20 MG TABLET PO SCH (09:00)
[2021-11-10] MEDS ORDERED: hydroCHLOROthiazide 12.5 MG CAPSULE PO SCH (09:00)
[2021-11-10 09:10] LABS: CALCIUM 9.1 mg/dL (8.5-10.1); CREATININE 0.7 mg/dL (0.6-1.0); GFR 104.4; POTASSIUM 4.1 mmol/L (3.5-5.1)
[2021-11-10 11:02] VITALS: BP_SYST 106; BP_SYST 130; BP_DIAS 71; BP_DIAS 78
--- NOTE | 2021-11-10 14:14 | HP ---
DATE OF SERVICE: 11/10/2021 ADMIT DATE: 11/09/2021 HISTORY OF PRESENT ILLNESS: The patient is a 56-year-old female patient who presented to the Emergency Room of [facility] with a complaint of retrosternal chest pain that she states started 2 days ago and has persisted. She describes it as a heaviness in the right side of her chest that does not radiate, but does cause her shortness of breath, diaphoresis, but no nausea or vomiting. She states that it comes and goes, but is not associated with anything she can think of including deep breath, movement or exertion, eating or drinking or anything else that she can think of. The patient states that she has had 2 prior angioplasties approximately 10 years ago, but she has no stents. She thinks that she has a stress test done about a year ago and it was read as normal before her resection of the left lower lobe lung cancer. She has obviously multiple risk factors for coronary artery disease including type 2 diabetes mellitus, hypertension, hyperlipidemia. She was extensively investigated in the Emergency Room, has had an EKG, which showed that she was in sinus rhythm at 90 beats per minute with right axis deviation, no ST segment elevation or depression. There is a wandering baseline V4 through V6, inverted T waves. Her chest x-ray showed cardiac silhouette is prominent in size with calcific atherosclerosis, mild interstitial and ground-glass opacities bilaterally. She did have lab work, which showed her first set of troponin I high sensitivity was less than 4. Her chemistry was otherwise unremarkable. The patient was admitted to do 2 more sets of cardiac enzyme and to consult the Cardiology team for further evaluation and treatment. PAST MEDICAL HISTORY: Significant for: 1. Coronary artery disease, status post myocardial infarction x 2. She apparently has left heart catheterization without any stent deployment according to her. 2. Hypertension. 3. Hyperlipidemia. 4. Type 2 diabetes mellitus. 5. Hypothyroidism. 6. Chronic obstructive pulmonary disease/bronchial asthma. 7. An episode of transient ischemic attack. 8. Lung cancer with resection of the left lower lobe. 9. She also has a history of bladder cancer, treated with BCG and multiple surgical resections. PAST SURGICAL HISTORY: Significant for left heart catheterization, left lower lobe resection, total abdominal hysterectomy and transurethral resection of bladder tumor. ALLERGIES: SHE IS ALLERGIC TO ASPARTAME, SACCHARIN AND SUCRALOSE. MEDICATIONS: She is currently on following medications: She is on atorvastatin calcium 10 mg once a day, lisinopril 10 mg once a day, lisinopril/hydrochlorothiazide 20/12.5 once a day, amitriptyline 50 mg at bedtime, Trelegy Ellipta 1 inhalation once a day and levothyroxine sodium 137 mcg once a day. REVIEW OF SYSTEMS: As per history of present illness. FAMILY HISTORY: She has 2 sisters, 1 older and 1 younger, both murdered. The other, she has 1 brother and 3 sisters, younger and healthy. Her father at age of 69 because of lung cancer. Mother at age of 57 because of myocardial infarction. SOCIAL HISTORY: She is , has a daughter and a son. She continued to smoke a pack a day, drinks alcohol twice a year. Does not use any drugs. She is currently unemployed. PHYSICAL EXAMINATION: GENERAL: On arrival to the Emergency Room, she looked well and was clearly in no apparent respiratory distress. No pallor, jaundice, cyanosis or thyromegaly. No jugular venous distention. No limb edema. VITAL SIGNS: Her heart rate was 93, blood pressure was 163/110, her temperature was 98.1, respiratory rate was 18 and oxygen saturation was 99%. HEAD, EYES, EARS, NOSE AND THROAT: Normocephalic, atraumatic. NECK: Supple. HEART: Showed normal first and second heart sounds. No gallop or murmur. CHEST: Clear to auscultation, no crepitation or rhonchi. ABDOMEN: Distended, soft, nontender. NEUROLOGIC: She was grossly intact. LABORATORY DATA: Her lab work on admission showed a white cell count of 9.6, hemoglobin 14, hematocrit 43, MCV 85 and platelet count 284,000. Her chemistry showed a serum sodium 143, potassium 4, chloride 105, bicarbonate 28, anion gap of 10, BUN 15, creatinine 0.8. Estimated GFR was 89 mL per minute. Her glucose was 88, calcium was 9.6. Total bilirubin, AST, ALT, alkaline phosphatase were normal. Total protein was 7.5, albumin 3.6, serum lipase was 110. Her prothrombin time, INR and APTT are normal. D-dimer was slightly elevated at 1.23. Urinalysis was essentially unremarkable and her COVID-19 by rapid testing was negative. Her chest x-ray showed mild interstitial and ground-glass opacities bilaterally, a large portion of this is chronic in nature from the patient's chronic interstitial lung disease, but superimposed mild edema or interstitial infiltrate may be present as well given the slight increase. There are also again some regions of the nodularity. Her first troponin I high sensitivity was less than 4. ASSESSMENT AND PLAN: Therefore, the patient was admitted to do 2 more sets of cardiac enzyme and to check her fasting lipid profile and consult the Cardiology team. KATY DR: Lena TID: [id number]
[2021-11-10] MEDS ORDERED: CONTRAST GIVEN. MC PRN (14:45)
[2021-11-10] MEDS ORDERED: IOHEXOL 350 MG/ML 100 ML VIAL. IV ONE (14:45)
[2021-11-10 15:25] VITALS: BP 113/79
--- NOTE | 2021-11-10 16:49 | RAD ---
Exam: CT of chest with contrast INDICATION: Chest pain, hypoxia, elevated d-dimer TECHNIQUE: Sequential axial images through the chest obtained following the administration of 100 mL of Omni 350 IV contrast. Sagittal and coronal reformatted images were reconstructed from the axial da ta and reviewed. 3-D reformatted images were reconstructed from the axial data and reviewed. Exposure: One or more of the following in the visualized dose reduction techniques were utilized for this examination: 1. Automated exposure control 2. Adjustment of the MA and/or KV according to patient size 3. Use of iterative of reconstructive technique Comparisons: Chest x-ray same day FINDINGS: Visualized portions of the thyroid are unremarkable. Several prominent but not enlarged prevascular, pretracheal and bilateral hilar lymph nodes. Heart size is normal. Small pericardial effusion. Mild coronary artery calcification. Thoracic aorta has normal course and caliber. Pulmonary artery is not enlarged. Airways are patent. No consolidation or pneumothorax. No suspicious lung nodules. Mild centrilobular emphysematous change noted predominantly at the upper lungs. No pleural effusion or thickening. Visualized upper abdomen is unremarkable. No suspicious osseous lesions or acute fractures. IMPRESSION: 1. No pulmonary embolus identified within the main, lobar or segmental pulmonary arteries. 2. Mild centrilobular emphysematous change noted the upper lungs. Correlate with patient's risk fact ors to determine the appropriateness for annual lung cancer screening. https://www.uspreventiveservicestaskforce.org/uspstf/recommendation/kyec-avlkwm-peyvectdu Electronically signed by: Lefty Alcantar MD (11/10/2021 4:46 PM) [facility]
--- NOTE | 2021-11-10 17:28 | CONS ---
DATE OF CONSULTATION: 11/10/2021 REASON FOR CONSULTATION: Chest pain. HISTORY OF PRESENT ILLNESS: The patient is a 56-year-old woman who was in her usual state of health and reports that over the last several days, she has had some chest discomfort. She describes this chest discomfort in 2 different ways; one, which is mostly related to pounding of her chest and palpitations. The other type of pain is more squeezing in nature. She does not have any associated alleviating or aggravating factors at this time. The patient reports that the pain occurs intermittently and can last several hours to a few seconds. She has had a history of multiple risk factors for cardiovascular disease and actually was admitted to the hospital approximately 3-4 years ago and at that time, she was felt to have atypical chest pain. She reports that over the last 1-2 years, she has had unfortunately a left lower lobe lung cancer resection and presumably at that time, prior to this procedure, she had a stress test, which she reports through [facility] and apparently this was unremarkable. The patient's EKG and cardiac enzymes have been reassuring and she has been admitted for further evaluation and treatment. PAST MEDICAL HISTORY: 1. Presumable coronary artery disease with history of angioplasty several years ago. 2. Hypertension. 3. Dyslipidemia. 4. Type 2 diabetes. 5. Hypothyroidism. 6. Chronic obstructive pulmonary disease. 7. History of transient ischemic attack. 8. History of left lower lobe lung cancer and resection. 9. History of recurrent bladder cancer, being treated with BCG injections. PAST SURGICAL HISTORY: As noted above. ALLERGIES: ASPARTAME, SACCHARIN AND SUCRALOSE. CURRENT CARDIOVASCULAR MEDICATIONS: 1. Hydrochlorothiazide 12.5 mg daily. 2. Lisinopril 20 mg daily. 3. Lisinopril 10 mg at bedtime. 4. Atorvastatin 10 mg daily. REVIEW OF SYSTEMS: Negative for 10 out of 14 systems reviewed, unless otherwise mentioned above in HPI. PHYSICAL EXAMINATION: VITAL SIGNS: Unremarkable. GENERAL: She is alert and oriented, in no acute distress. HEAD AND NECK: Unremarkable. CARDIAC: Regular rate and rhythm without any murmurs, rubs or gallops. LUNGS: Notable for decreased breath sounds at the bases; otherwise, no acute abnormalities. ABDOMEN: Obese, protuberant, nontender, nondistended. EXTREMITIES: No clubbing, cyanosis or edema, with 2+ pulses. NEUROLOGIC: No focal deficits. MUSCULOSKELETAL: No trauma. DIAGNOSTIC STUDIES: Hemoglobin, platelets and cardiac enzymes are negative. TSH is normal. BMP is within normal limits. D-dimer is elevated 1.23. Chest x-ray is unremarkable. CT of the chest is pending, but preliminarily it appears that there may be filling defects in the left lower lobe. EKG is unremarkable. IMPRESSION: 1. Atypical chest pain. 2. Multiple cardiovascular risk factors as noted above. 3. Elevated D-dimer, concerning for pulmonary embolus. RECOMMENDATIONS: At this present time, continue evaluation for pulmonary embolus and if negative, we will plan for an outpatient stress testing. If she has a pulmonary embolus, we will then obtain inpatient echocardiogram. Supportive care for now. We will follow along closely. Thank you for this consultation. CHRISTIAN/JANIS/BIA DR: CHRISTIAN/vitaliy TID: [id number]
--- NOTE | 2021-11-10 18:03 | NUR ---
PATIENT IS DISCHARGED HOME WITH SELF CARE. PT IS STABLE AT TIME OF DISCHARGE. PT IS GIVE ALL DISCHARGE AND FOLLOW UP INSTRUCTIONS. IV IS REMOVED AND TELE MONITOR IS D/C'D. PT AMBULATED OFF OF UNIT ACCOMPANIED BY STAFF.
--- NOTE | 2021-11-10 21:58 | PN ---
DATE: 11/10/2021 SUBJECTIVE: The patient is resting, slightly propped up in bed, resting comfortably and in no apparent respiratory distress. She is on 2 liters of oxygen. On questioning her, she denied any further episode of chest pain. OBJECTIVE: GENERAL: On examining her, she looked well and was clearly in no apparent respiratory distress. No pallor, jaundice, cyanosis or thyromegaly. No jugular venous distention. No limb edema. VITAL SIGNS: Her heart rate was 87, blood pressure is 130/78, temperature 98.8, respiratory rate was 20 and oxygen saturation was 94% on room air. HEAD, EYES, EARS, NOSE, AND THROAT: Normocephalic, atraumatic. NECK: Supple. HEART: Showed normal first and second heart sounds. No gallop or murmur. CHEST: Showed central trachea, equal bilateral expansion, air entry, vesicular breath sounds. No crepitation or rhonchi. ABDOMEN: Distended, soft, nontender. NEUROLOGIC: She was grossly intact. LABORATORY DATA: This morning showed a white cell count 7800, hemoglobin 13, hematocrit 39, MCV 87 and platelet count 241,000 with normal manual differential. Her serum sodium was 139, potassium 4.1, chloride 105, bicarbonate 25, anion gap of 9, BUN 13, creatinine 0.7. Estimated GFR was 104 mL per minute. Her glucose was 89, calcium was 9.1. She had 2 more sets of cardiac enzymes showed troponin to be less than 4. Her TSH was 3.586. ASSESSMENT: In summary, this is a 56-year-old -[place] female patient who came with what seemed to be fairly atypical chest pain that started at rest when she was lying in bed. The pain is mostly on the right side and also on the back. She has a history of lung cancer that required resection of the left lower lobe. She has also history of bladder cancer that required resection and treatment with BCG. She is now requiring oxygen, although she denies that she has a history of chronic obstructive pulmonary disease and she continues to smoke a pack a day. She has already 3 sets of cardiac enzymes that ruled out myocardial infarction. Her D-dimer was slightly elevated at 1.23. I will order a CT angio of the chest to rule out the possibility of pulmonary emboli and await the evaluation by the lead person. CHERYL DR: Lena TID: [id number]
== END 2021-11-10 18:02 | disposition home or self-care (01) ==
LOC: ER 16:21 → INTOOBSV 18:15 → ER HOLD 18:15 → 1 SOUTH 19:38
PROVIDERS: ADMIT Internal Medicine; ATTEND Internal Medicine
DX: I25.10 Atherosclerotic heart disease of native coronary artery without angina pectoris (principal); Z20.822 Contact with and (suspected) exposure to COVID-19; R07.89 Other chest pain; I10 Essential (primary) hypertension; E11.9 Type 2 diabetes mellitus without complications; E78.5 Hyperlipidemia, unspecified; E03.9 Hypothyroidism, unspecified; J44.9 Chronic obstructive pulmonary disease, unspecified; G45.9 Transient cerebral ischemic attack, unspecified; E78.00 Pure hypercholesterolemia, unspecified; I25.2 Old myocardial infarction; F17.200 Nicotine dependence, unspecified, uncomplicated; Z85.118 Personal history of other malignant neoplasm of bronchus and lung; Z56.0 Unemployment, unspecified; Z85.51 Personal history of malignant neoplasm of bladder; Z86.73 Personal history of transient ischemic attack (TIA), and cerebral infarction without residual deficits; Z90.710 Acquired absence of both cervix and uterus; Z79.899 Other long term (current) drug therapy; Z98.890 Other specified postprocedural states
CPT/HCPCS: 36415; 71045; 71275; 80048; 80053; 81001; 83690; 83880; 84443; 84484; 85025; 85379; 85610; 85730; 87086; 87426; 93005; 94640; 96374; 96375; 99285; G0378; J2270; J2405; Q9967; U0003; G0379